=== PATIENT | female | born 1985 | race Caucasian/White ===

== ENCOUNTER 2023-03-27 18:09 | Inpatient (IN) ==
--- OUTSIDE RECORDS SUMMARY | 2023-03-27 18:15 | External Medical Summary | Summary of Care ---
Author Name Unknown Organization [facility] Address [address] [facility] [place] [address] Phone [phone] Care Team Providers Care Net Manager Name Role Phone Katherine Gonzales DO Primary Care Provider Encounter Details Date Type Department Care Team (Late st Contact Info) Description 03/08/2023 Telephone Pharmacy, [facility] [address] [place] [address] [facility] [address] [facility] [place] [address] Allergies No known active allergiesdocumented as of this encounter (statuses as of 03/10/2023) Medications Medication Sig Dispensed Refills Start Date End Date Status CELEXA 40 MG PO TABS None Entered 0 Ac tive Multiple Vitamin (MULTI-VITAMIN DAILY) Tablet Take 1 Tablet by mouth in the morning. 0 Active traZODone (DESYREL) 50 MG Tablet Take 1 Tablet by mouth. Pt takes 3 tablets at bedtime for total dose of 150 mg 0 01/16/2019 Active ARIPiprazole 2 MG Oral Tablet (Abilify) Take 1 Tablet by mouth in the morning. 0 10/15/2020 Active Metoclopramide HCl 10 MG Oral Tablet (Reglan) Take 1 Tablet by mouth as needed for Migraine or Nausea (limit 2-3 per week). 10 Tablet 2 05/25/2022 Active Naproxen 500 MG Oral Tablet (Naprosyn) TAKE 1 TABLET BY MOUTH NEEDED FOR MIGRAINE AT START, MAY REPEAT 1X AFTER 12 HOURS, USE UP TO 3X A WEEK 20 Tablet 2 11/16/2022 Active Aimovig 140 MG/ML Subcutaneous Solution Auto-injector (Erenumab-aooe) Inject 140 mg under the skin every month. 1 mL 5 11/18/2022 Active Aimovig 140 MG/ML Subcutaneous Solution Auto-injector (Erenumab-aooe) Inject 140 mg under the skin Every Month. 1 mL 5 02/14/2023 Active Ubrogepant 100 MG Oral Tablet (Ubrelvy) Take 1 tablets at onset of migraine and may repeat in 2 hours if needed. Do not exceed 2 tablets in 24 hours. 10 Tablet 5 03/01/2023 Active documented as of this encounter (statuses as of 03/10/2023) Active Problems Problem Noted Date Diagnosed Date Body mass index (BMI) of 40.0 to 44.9 in adult 0 03/08/2022 Overview: Per Obesity protocol Encounter for sterilization 11/20/2021 Migraine without aura, intractable 06/10/2021 Recurrent major depressive disorder 02/11/2021 Dyshidrotic eczema 08/19/2016 Migraine without aura and wi thout status migrainosus, not intractable 04/17/2015 Tension headache 04/17/2015 Depression 07/02/2011 Allergic rhinitis 07/02/2011 documented as of this encounter (statuses as of 03/10/2023) Resolved Problems Problem Noted Date Diagnosed Date Resolved Date Depression 07/02/2011 07/02/2011 documented as of this encounter (statuses as of 03/10/2023) Immunizations Name Administration Dates Next Due COVID-19 mRNA, LNP-s, No Pre serve, 2-Dose Series ([employer]) 11/28/2020,04/30/2020,04/09/2020 Covid-19, Mrna, Lnp-s, Pf, B ivalent, 30 Mcg, IM, 12 yrs and above ([employer]) 11/06/2021 Seasonal Influenza Virus Vac cine, Unspecified Formulation 11/06/2021,11/28/2020,11/21/2019,2017,11/27/2016,01/17/2015,12/21/2014,1 04/01/2013,12/05/2012 Seasonal Influenza, Quadriva lent, No Preserve, IM 10/27/2018 Seasonal Influenza, Quadriva lent, No Preserve, Mdck 11/21/2019,12/24/2017 Seasonal Influenza, Recombin ant, RIV3, No Preserve 12/06/2015 Seasonal Influenza, Split, I IV3, With Preserve, Inj 11/27/2016,01/17/2015,01/29/2014,2012 TDAP (age 10 and older)(Boostrix) 07/03/2021 TDAP (age 11 and older)(Adacel) 07/02/2011 documented as of this encounter Social History Tobacco Use Types Packs/Day Years Used Date Smoking Tobacco: Never Smokeless Tobacco: Never Alcohol Use Standard Drinks/Week Comments Yes 0 (1 standard drink = 0.6 oz pur e alcohol) rare- once a month PHQ-2 Answer Date Recorded PHQ Adult Total Score 0 02/25/2022 Hunger Vital Sign Answer Date Recorded Within the past 12 months, y ou worried that your food would run out before you got the money to buy more. Never true 09/05/19 23 Within the past 12 months, t he food you bought just didn't last and you didn't have money to get more. Never true 09/04/2022 Sex and Gender Information Value Date Recorded Sex Assigned at Female 06/07/2018 8:28 AM EDT Gender Identity Female 06/07/2018 8:28 AM EDT Sexual Orientation Straight 06/07/2018 8: 28 AM EDT Job Start Date Occupation Industry Not on file Not on file Not on file documented as of this encounter Miscellaneous Notes * Telephone Encounter - Russell Hart LPN - 03/10/2023 4:18 PM EST Ketty PIRES sent to PreCert team. documented in this encounter Plan of Treatment Upcoming Encounters Date Type Department Care Team (Late st Contact Info) Description 04/08/2023 7:15 AM EST Office Visit Gynecology/Obstetrics [address] [place] [address] Tati Clemons PA-C [address] [place] [address] 05/31/2023 8:40 AM EDT Telemedicine Neurology, [place] [address] [place] [address] Sally Portillo, [address] [place] [address] Health Maintenance Due Date Last Done Comments Hepatitis B (1 of 3 - 3-dose series) 1984 HPV/Co-Test 2014 COVID-19 Vaccine ( season) 2022 11/06/2021, 11/28/2020, 04/30/2020, Additional history exists Depression Screening 02/25/2023 02/25/2022 Cervical Cancer Screening 03/06/2024 Pap Smear 03/06/2024 03/06/2021, 05/30, 04/25/2015, Additional history exists Diabetes Screening 04/28/2025 04/28/2022, 1 , 12/26/2018, Additional history exists DTaP,Tdap,and Td Vaccines (3 - Td or Tdap) 07/04/2031 07/03/2021, 07/02/2011 Influenza Vaccine (FLU shot) Completed , 11/06/2021, 11/28/2020, Additional history exists GARDASIL-HPV IMMUNIZATION SERIES Aged Out No longer eligible based on patient's age to complete this topic MENINGOCOCCAL (MENACTRA/MENVEO) Aged Out No longer eligible based on patient's age to complete this topic Pneumococcal Vaccine: Pediatrics (0 to 5 Years) and At-Risk Patients (6 to 64 Years) Aged Out No longer eligible based on patient's age to complete this topic documented as of this encounter Medical Devices Not on filedocumented as of this encounter Advance Directives Latest Code Status on File Code Status Date Activated Date Inactivated Comments Full Code 11/20/2021 8:15 AM 11/20/2021 3:20 PM This order reflects the patients wishes and were consensually agreed upon. Question Answer Comments Discussion of Advance Directives occurred with: Not Discussed due to patient's condition Code Status History Code Status Date Activated Date Inactivated Comments Full Code 11/20/2021 8:15 AM 11/20/2021 8:15 AM This order reflects the patients wishes and were consensually agreed upon. Question Answer Comments Discussion of Advance Directives occurred with: Not Discussed due to patient's condition Care Teams Net Manager Relationship Specialty Start Date End Date Katherine Gonzales DO [address] [place] [address] PCP - General Family Medicine 09/14/18 documented as of this encounter
--- OUTSIDE RECORDS SUMMARY | 2023-03-27 18:15 | External Medical Summary | Summary of Care ---
Author Name Unknown Organization [facility] Address [address] [place] [address] Phone [phone] Care Team Providers Care Orthopedic Radiologic Technologist Name Role Phone Christian Katherinejerrica Weiner DO Primary Care Provider [phone] Reason for Visit * Reason Comments eRx-Medication Refill Encounter Details Date Type Department Care Team Description [facility] [address] [place], [place] [id number] Malachi Portillo [address] [place] [address] Encounter for long-term (current) use of medications* Allergies No known active allergiesdocumented as of this encounter (statuses as of 11/16/2022) Medications Medication Sig Dispensed Refills Start Date End Date Status CELEXA 40 MG PO TABS None Entered 0 Active Multiple Vitamin (MULTI-VITAMIN DAILY) Tablet Take 1 Tablet by mouth in the morning. 0 Active traZODone (DESYREL) 50 MG Tablet Take 1 Tablet by mouth. Pt takes 3 tablets at bedtime for total dose of 150 mg 0 01/16/2019 Active ARIPiprazole 2 MG Oral Tablet (Abilify) Take 1 Tablet by mouth in the morning. 0 10/15/2020 Active Aimovig 140 MG/ML Subcutaneous Solution Auto-injector (Erenumab-aooe) Inject 140 mg under the skin Every Month. 1 mL 5 05/25/2022 Active Metoclopramide HCl 10 MG Oral Tablet (Reglan) Take 1 Tablet by mouth as needed for Migraine or Nausea (limit 2-3 per week). 10 Tablet 2 05/25/2022 Active Naproxen 500 MG Oral Tablet (Naprosyn) TAKE 1 TABLET BY MOUTH NEEDED FOR MIGRAINE AT START, MAY REPEAT 1X AFTER 12 HOURS, USE UP TO 3X A WEEK 20 Tablet 2 11/16/2022 Active Eletriptan Hydrobromide 40 MG Oral Tablet (Relpax) TAKE 1 TABLET BY MOUTH AT START OF HEADACHE, MAY REPEAT ONCE AFTER 4 HOURS NEEDED MAX 2 DAY/WEEK 10 Tablet 2 11/16/2022 Active Naproxen 500 MG Oral Tablet (Naprosyn) Take 1 Tablet (500 mg) by mouth as needed for Migraine (take 1 tab by mouth at start of headache, may repeat once after 12 hours; use up to 3 days a week). 20 Tablet 2 02/04/2022 3 Discontinued Eletriptan Hydrobromide 40 MG Oral Tablet (Relpax) Take 1 Tablet by mouth as needed for Migraine. take 1 tab by mouth at start of headache, may repeat once after 4 hours; may use up to 2 days per week 10 Tablet 2 05/25/2022 3 Discontinued documented as of this encounter (statuses as of 11/16/2022) Active Problems Problem Noted Date Body mass index (BMI) of 40.0 to 44.9 in adult 03/08/2022 Overview: Per Obesity protocol Encounter for sterilization 11/20/2021 Migraine without aura, intractable 06/10 Recurrent major depressive disorder 01/28 Dyshidrotic eczema 08/19/2016 Migraine without aura and without status migrainosus, not intractable 04/17/2015 Tension headache 04/17/2015 Depression 07/02/2011 Allergic rhinitis 07/02/2011 documented as of this encounter (statuses as of 11/16/2022) Resolved Problems Problem Noted Date Resolved Date Depression 07/02/2011 07/02/2011 documented as of this encounter (statuses as of 11/16/2022) Immunizations Name Administration Dates Next Due COVID-19 mRNA, LNP-s, No Pre serve, 2-Dose Series ([employer]) 11/28/2020,04/30/2020,04/09/2020 Covid-19, Mrna, Lnp-s, Pf, B ivalent, 30 Mcg, IM, 12 yrs and above (Pfizer) 11/06/2021 Seasonal Influenza Virus Vac cine, Unspecified [...] pur e alcohol) rare- once a month Food Insecurity Answer Date Recorded Within the past 12 months, y ou worried that your food would run out before you got money to buy more. Never true 09/04/2022 Within the past 12 months, t he food you bought just didn't last and you didn't have money to get more. Never true 09/04/2022 Sex Assigned at Date Recorded Female 06/07/2018 8:28 AM E DT Job Start Date Occupation Industry Not on file Not on file Not on file documented as of this encounter Miscellaneous Notes * Telephone Encounter - Tasia Lugo, [facility] - 11/16/2022 11:27 AM EDT Signed Prescriptions: Disp Refills Naproxen 500 MG Oral Tablet (Naprosyn) 20 Tab*2 Sig: TAKE 1 TABLET BY MOUTH NEEDED FOR MIGRAINE AT START, MAY REPEAT 1X AFTER 12 HOURS, USE UP TO 3X A WEEKAuthorizing Provider: MALACHI PORTILLO User: TASIA LUGO Eletriptan Hydrobromide 40 MG Oral Tablet *10 Tab*2 Sig: TAKE 1 TABLET BY MOUTH AT START OF HEADACHE, MAY REPEAT ONCE AFTER 4 HOURS NEEDED MAX 2 DAY/WEEKAuthorizing Provider: MALACHI PORTILLO User: TASIA LUGO * Telephone Encounter - Tasia Lugo RPh - 11/16/2022 11:24 AM EDT Per refill protocol patient needs AST/ALT on file within the past year while using NSAIDs. Lab workordered. Patient may obtain with next routine labs. Thanks, Tasia Lugo PharmD, MS Clinical Pharmacist [facility] [phone] 11/16/2022 11:24 AM * Telephone Encounter - RICH Banda - 11/16/2022 10:25 AM EDT Pending Prescriptions: Disp Refills Naproxen 500 MG Oral Tablet [Pharmacy Med *20 Tab*2 Sig: TAKE 1 TABLET BY MOUTH NEEDED FOR MIGRAINE AT START, MAY REPEAT 1X AFTER 12 HOURS, USE UP TO 3X A WEEK Eletriptan Hydrobromide 40 MG Oral Tablet *10 Tab*2 Sig: TAKE 1 TABLET BY MOUTH AT START OF HEADACHE, MAY REPEAT ONCE AFTER 4 HOURS NEEDED MAX 2 DAY/WEEK * Telephone Encounter - RICH Banda - 11/16/2022 10:24 AM EDT Patient is up to date for office visits. Pending Prescriptions: Disp Refills Naproxen 500 MG Oral Tablet (Naprosyn) [P*20 Tab*2 Sig: TAKE 1 TABLET BY MOUTH NEEDED FOR MIGRAINE AT START, MAY REPEAT 1X AFTER 12 HOURS, USE UP TO 3X A WEEK Eletriptan Hydrobromide 40 MG Oral Tablet*10 Tab*2 Sig: TAKE 1 TABLET BY MOUTH AT START OF HEADACHE, MAY REPEAT ONCE AFTER 4 HOURS NEEDED MAX 2 DAY/WEEK Last Visit: Visit date not found (in office), 05/25/2022 (telemedicine) Next Visit: Visit date not found If no future appointments scheduled, and last appointment is greater than a year ago, please schedule patient for a follow-up appointment Last date the medication was ordered: 05/25 12/ Pharmacy: [id number] Is this request for a controlled substance?No it is not controlled. Urine Drug Screen:No results found for this or any previous visit. Patient Phone Numbers Labs: Lab Results Component Value Date/Time CREAT 0.9 02/25/2022 07:28 AM CREAT 0.8 04/12/2015 10:25 AM POTASSIUM 4.8 02/25/2022 07:28 AM POTASSIUM 4.4 04/12/2015 10:25 AM TSH 1.43 04/12/2015 10:25 AM LDLCALC 108 02/25/2022 07:28 AM LDLCALC 94 12/26/2018 09:33 AM LDLDIRECT NOT APPLICABLE 12/26/2018 09:33 AM ALT 14 09/08/2015 02:55 PM HGBA1C 5.2 04/28/2022 10:40 AM documented in this encounter Plan of Treatment Upcoming Encounters Date Type Specialty Care Team Description 03/01/2023 Telemedicine Neurology Malachi Portillo, DO [address] [facility] [place] [address] 04/08/2023 Office Visit Gynecology Obstetrics Tati Clemons PA-C [address] [place] [address] Scheduled Orders Name Type Priority Associated Diagnoses Orde r Schedule ALT Lab Routine Encounter for long-term (current) use of medications Expected: 11/16/2022 (Approximate), Expires: 11/17/2023 AST Lab Routine Encounter for long-term (current) use of medications Expected: 11/16/2022 (Approximate), Expires: 11/17/2023 Health Maintenance Due Date Last Done Comments Hepatitis B (1 of 3 - 3-dose series) 1984 HPV/Co-Test 2014 Influenza Vaccine (FLU shot) (#1) 2022 11/06/2021, 11/28/2020, 11/21/2019, Additional history exists Depression Screening 02/25/2023 02/25/2022 Cervical Cancer Screening 03/06/2024 Pap Smear 03/06/2024 03/06/2021, 05/30, 04/25/2015, Additional history exists Diabetes Screening 04/28/2025 04/28/2022, 1 , 12/26/2018, Additional history exists DTaP,Tdap,and Td Vaccines (3 - Td or Tdap) 07/04/2031 07/03/2021, 07/02/2011 Hepatitis C Screening Completed 04/22/2014 COVID-19 Vaccine Completed 11/06/2021, 02/2020, 04/30/2020, Additional history exists GARDASIL-HPV IMMUNIZATION SERIES Aged [...] Not on filedocumented as of this encounter Visit Diagnoses Diagnosis Encounter for long-term (current) use of medications- Primary Encounter for long-term (current) use of other medications documented in this encounter Advance Directives Latest Code Status [...] Discussed due to patient's condition Care Teams Orthopedic Radiologic Technologist Relationship Specialty Start Date End Date Katherine Gonzales, DO [address] [place] [address] PCP - General Family Medicine 09/14/18 documented as of this encounter
--- OUTSIDE RECORDS SUMMARY | 2023-03-27 18:15 | External Medical Summary | Summary of Care ---
Author Name Unknown Organization [facility] Address [address] [place] [address] Phone [phone] Care Team Providers Care Epic [employer] Specialists Name Role Phone Christian Katherinejerrica Weiner DO Primary Care Provider [phone] Reason for Visit * Reason Onset Date Comments Medication Refill 02/14/2023 Encounter Details Date Type Department Care Team (Late st Contact Info) Description 02/14/2023 Telephone Neurology, [place] [address] [place], [place] [phone] Sally Portillo [address] [place] [address] Medication Refill Allergies No known active allergiesdocumented as of this encounter (statuses as of 02/14/2023) Medications Medication Sig Dispensed Refills Start Date [...] 2 DAY/WEEK 10 Tablet 2 11/16/2022 Active Aimovig 140 MG/ML Subcutaneous Solution Auto-injector (Erenumab-aooe) Inject 140 mg under the skin every month. 1 mL 5 11/18/2022 Active Aimovig 140 MG/ML Subcutaneous Solution Auto-injector (Erenumab-aooe) Inject 140 mg under the skin Every Month. 1 mL 5 02/14/2023 Active documented as of this encounter (statuses as of 02/14/2023) Active Problems Problem Noted Date Diagnosed Date [...] as of this encounter (statuses as of 02/14/2023) Resolved Problems Problem Noted Date Diagnosed Date Resolved Date Depression 07/02/2011 07/02/2011 documented as of this encounter (statuses as of 02/14/2023) Immunizations Name Administration Dates Next Due COVID-19 mRNA, LNP-s, No Pre serve, 2-Dose Series ([facility]) 11/28/2020,04/30/2020,04/09/2020 Covid-19, Mrna, Lnp-s, Pf, B ivalent, 30 Mcg, IM, 12 yrs and above ([facility]) 11/06/2021 Seasonal Influenza Virus Vac cine, Unspecified [...] encounter Miscellaneous Notes * Telephone Encounter - Rayna Guerrero RPh - 02/14/2023 10:17 AM EST Reissued Aimovig Rx from correct dept documented in this encounter Plan of Treatment Upcoming Encounters Date Type Department Care Team (Late st Contact Info) Description 03/01/2023 8:40 AM EST Telemedicine Neurology, [place] [address] [place] [address] Sally Portillo DO [address] [place] [address] 04/08/2023 7:15 AM EST Office Visit Gynecology/Obstetrics Gordon Leung [address] [place] [address] Tati Clemons PA-C [address] [place] [address] Health Maintenance Due Date Last Done Comments [...] Discussed due to patient's condition Care Teams Epic [employer] Relationship Specialty Start Date End Date Katherine Gonzales DO [address] [place] [address] PCP - General Family Medicine 09/14/18 documented as of this encounter
--- OUTSIDE RECORDS SUMMARY | 2023-03-27 18:15 | External Medical Summary | Summary of Care ---
Author Name Unknown Organization [facility] Address [address] [place] [address] Phone [phone] Care Team Providers Care Textile Technical Officer Name Role Phone Christian Katherine Husam GUZMAN Primary Care Provider [phone] Reason for Visit * Reason Onset Date Comments Precert Approved 03/10/2023 Ubrogepant Encounter Details Date Type Department Care Team (Late st Contact Info) Description 03/10/2023 Telephone Neurology, [place] [address] [place], [place] [id number] [facility] [address] [place], [place] [phone] Precert Approved ( Ubrogepant) Allergies No known active allergiesdocumented as of this encounter (statuses as of 03/14/2023) Medications Medication Sig Dispensed Refills Start Date [...] as of this encounter (statuses as of 03/14/2023) Active Problems Problem Noted Date Diagnosed Date [...] as of this encounter (statuses as of 03/14/2023) Resolved Problems Problem Noted Date Diagnosed Date Resolved Date Depression 07/02/2011 07/02/2011 documented as of this encounter (statuses as of 03/14/2023) Immunizations Name Administration Dates Next Due COVID-19 mRNA, LNP-s, No Pre serve, 2-Dose Series ([employer]) 11/28/2020,04/30/2020,04/09/2020 Covid-19, Mrna, Lnp-s, Pf, B ivalent, 30 Mcg, IM, 12 yrs and above ([employer]) 11/06/2021 Seasonal Influenza Virus Vac cine, Unspecified [...] encounter Miscellaneous Notes * Telephone Encounter - Hailey AURELIANO Wells - 03/10/2023 4:17 PM EST Neurology Pre-Cert Request Medication/Disease State Information: Medication: Ubrogepant Diagnosis (including ICD-10): Migraine - Migraine without aura G43.0 - Self- administered - route pre-cert request to [id number] See corresponding visit note(s) for additional supporting clinical information. Office Information: Prescriber: Dr. Portillo documented in this encounter Plan of Treatment Upcoming Encounters Date Type Department Care Team (Late st Contact Info) Description 04/08/2023 7:15 AM EST [facility] [address] [place] [address] Tati Clemons PA-C [address] [place] [address] 05/31/2023 8:40 AM EDT Telemedicine Neurology, [place] [address] [place], [place] [phone] Sally Portlilo, [address] [facility] [place] [address] Health Maintenance Due Date Last Done Comments [...] Discussed due to patient's condition Care Teams Textile Technical Officer Relationship Specialty Start Date End Date Katherine Gonzales DO [address] [place] [address] PCP - General Family Medicine 09/14/18 documented as of this encounter
--- OUTSIDE RECORDS SUMMARY | 2023-03-27 18:15 | External Medical Summary | Summary of Care ---
Author Name Unknown Organization [facility] Address [address] [place] [address] Phone [phone] Care Team Providers Care Cover Stripper Name Role Phone Christian Katherinejerrica Weiner DO Primary Care Provider [phone] Reason for Visit * Reason Onset Date Comments Pre Cert/Prior Auth 03/10/2023 Ubrogepant Encounter Details Date Type Department Care Team (Late st Contact Info) Description 03/10/2023 Telephone Neurology, [place] [address] [place], [place] [phone] Sally Portillo [address] [place] [address] Pre Cert/Prior Auth (Ubrogepant) Allergies No known active allergiesdocumented as of [...] mRNA, LNP-s, No Pre serve, 2-Dose Series ([employer]) 11/28/2020,04/30/2020,04/09/2020 Covid-19, Mrna, Lnp-s, Pf, B ivalent, 30 Mcg, IM, 12 yrs and above ([employer]) 11/06/2021 Seasonal Influenza Virus Vac cine, Unspecified [...] Encounter - Russell Hart LPN - 03/10/2023 4:17 PM EST Neurology Pre-Cert Request Medication/Disease State Information: Medication: Ubrogepant Diagnosis (including ICD-10): Migraine - Migraine without aura G43.0 - Self- administered - route pre-cert request to [id number] See corresponding visit note(s) for additional supporting clinical information. Office Information: Prescriber: Dr. Portillo documented in this encounter Plan of Treatment Upcoming Encounters Date Type Department Care Team (Late st Contact Info) Description 04/08/2023 7:15 AM EST Office Visit Gynecology/Obstetrics Gordon Leung [address] [place] [address] Tati Clemons PA-C [address] [place] [address] 05/31/2023 8:40 AM EDT Telemedicine Neurology, [place] [address] [place], [place] [phone] Sally Portillo, [address] [place] [address] Health Maintenance Due Date Last Done Comments [...] Discussed due to patient's condition Care Teams Cover Stripper Relationship Specialty Start Date End Date Katherine Gonzales DO [address] [place] [address] PCP - General Family Medicine 09/14/18 documented as of this encounter
--- OUTSIDE RECORDS SUMMARY | 2023-03-27 18:15 | External Medical Summary | Summary of Care ---
Author Name Unknown Organization [facility] Address [address] [place] [address] Phone [phone] Care Team Providers Care Regional Clinical Director Name Role Phone Christian Katherinejerrica Weiner DO Primary Care Provider [phone] Reason for Visit * Reason Comments Medication Refill Encounter Details Date Type Department Care Team Description 11/18/2022 Refill Neurology, [facility] [address] [place] [address] Malachi Portillo [address], [place] [phone] Allergies No known active allergiesdocumented as of this encounter (statuses as of 11/18/2022) Medications Medication Sig Dispensed Refills Start Date [...] the skin Every Month. 1 mL 5 11/18/2022 Active Aimovig 140 MG/ML Subcutaneous Solution Auto-injector (Erenumab-aooe) Inject 140 mg under the skin Every Month. 1 mL 5 05/25/2022 11/18/2022 Discontinued (Refill) documented as of this encounter (statuses as of 11/18/2022) Active Problems Problem Noted Date Body mass index (BMI) of 40.0 to 44.9 in adult 03/08/2022 Overview: Per Obesity protocol Encounter for sterilization 11/20/2021 Migraine without aura, intractable 06/10 Recurrent major depressive disorder 01/28 Dyshidrotic eczema 08/19/2016 Migraine without aura and without status migrainosus, not intractable 04/17/2015 Tension headache 04/17/2015 Depression 07/02/2011 Allergic rhinitis 07/02/2011 documented as of this encounter (statuses as of 11/18/2022) Resolved Problems Problem Noted Date Resolved Date Depression 07/02/2011 07/02/2011 documented as of this encounter (statuses as of 11/18/2022) Immunizations Name Administration Dates Next Due COVID-19 mRNA, LNP-s, No Pre serve, 2-Dose Series ([employer]) 11/28/2020,04/30/2020,04/09/2020 Covid-19, Mrna, Lnp-s, Pf, B ivalent, 30 Mcg, IM, 12 yrs and above ([employer]) 11/06/2021 Seasonal Influenza Virus Vac cine, Unspecified [...] encounter Miscellaneous Notes * Telephone Encounter - Malachi Portillo DO - 11/18/2022 8:53 AM EDT Signed Prescriptions: Disp Refills Aimovig 140 MG/ML Subcutaneous Solution Au*1 mL 5 Sig: Inject 140 mg under the skin Every Month.Authorizing Provider: MALACHI PORTILLO documented in this encounter Plan of Treatment Upcoming Encounters Date Type Specialty Care Team Description 03/01/2023 Telemedicine Neurology Malachi Portilol, DO [address] [facility] [place] [address] 04/08/2023 Office Visit Gynecology Obstetrics Tati Clemons PA-C [address] [place] [address] Health Maintenance Due Date Last Done Comments [...] Discussed due to patient's condition Care Teams Regional Clinical Director Relationship Specialty Start Date End Date Katherine Gonzales, DO [address] [place] [address] PCP - General Family Medicine 09/14/18 documented as of this encounter
--- OUTSIDE RECORDS SUMMARY | 2023-03-27 18:15 | External Medical Summary | Summary of Care ---
Author Name Unknown Organization [facility] Address [address] [place] [address] Phone [phone] Care Team Providers Care Auto Emissions Technician Name Role Phone Christian Katherinejerrica Weiner DO Primary Care Provider [phone] Reason for Visit * Reason Onset Date Comments Precert In Process 03/10/2023 12 [facility] Ubr ogepant Encounter Details Date Type Department Care Team (Late st Contact Info) Description [facility] [address] [place], [place] [phone] Sally Portillo [address], [place] [phone] Precert In Process (12 [facility] Ubrogepant) Allergies No known active allergiesdocumented as of this encounter (statuses as of 03/11/2023) Medications Medication Sig Dispensed Refills Start Date [...] as of this encounter (statuses as of 03/11/2023) Active Problems Problem Noted Date Diagnosed Date [...] as of this encounter (statuses as of 03/11/2023) Resolved Problems Problem Noted Date Diagnosed Date Resolved Date Depression 07/02/2011 07/02/2011 documented as of this encounter (statuses as of 03/11/2023) Immunizations Name Administration Dates Next Due COVID-19 mRNA, LNP-s, No Pre serve, 2-Dose Series ([employer]) 11/28/2020,04/30/2020,04/09/2020 Covid-19, Mrna, Lnp-s, Pf, B ivalent, 30 Mcg, IM, 12 yrs and above ([employer]) 11/06/2021 Seasonal Influenza Virus Vac cine, Unspecified [...] Self- administered - route pre-cert request to [id number] See corresponding visit note(s) for additional supporting clinical information. Office Information: Prescriber: Dr. Portillo documented in this encounter Plan of Treatment Upcoming Encounters Date Type Department Care Team (Late st Contact Info) Description 04/08/2023 7:15 AM EST Office Visit Gynecology/Obstetrics Gordon Leung [address] [place] [address] Tati Clemons PA-C [address] [place] [address] 05/31/2023 8:40 AM EDT [facility] [address], [place] [phone] Sally Portillo DO [address] [place] [address] Health Maintenance Due Date Last Done Comments [...] Discussed due to patient's condition Care Teams Auto Emissions Technician Relationship Specialty Start Date End Date Katherine Gonzales DO [address] [place] [address] PCP - General Family Medicine 09/14/18 documented as of this encounter
--- OUTSIDE RECORDS SUMMARY | 2023-03-27 18:15 | External Medical Summary | Summary of Care ---
Author Name Unknown Organization [facility] Address [address] [place] [address] Phone [phone] Care Team Providers Care Lawn Sprinkler Servicer Name Role Phone Christian Katherinejerrica Weiner DO Primary Care Provider [phone] Reason for Visit * Reason Onset Date Comments Pre Cert/Prior Auth 03/10/2023 Ubrogepant Encounter Details Date Type Department Care Team (Late st Contact Info) Description 03/10/2023 Telephone Neurology, [facility] [address], [place] [phone] Sally Portillo [address] [place], [place] [phone] Pre Cert/Prior Auth (Ubrogepant) Allergies No known [...] mRNA, LNP-s, No Pre serve, 2-Dose Series ([employer]) 11/28/2020,04/30/2020,04/09/2020 Covid-19, Mrna, Lnp-s, Pf, B ivalent, 30 Mcg, IM, 12 yrs and above ([employer]) 11/06/2021 Seasonal Influenza Virus Vac cine, Unspecified [...] Self- administered - route pre-cert request to [id number] See corresponding visit note(s) for additional supporting clinical information. Office Information: Prescriber: Dr. Portillo documented in this encounter Plan of Treatment Upcoming Encounters Date Type Department Care Team (Late st Contact Info) Description 04/08/2023 7:15 AM EST Office Visit Gynecology/Obstetrics Gordon Leung [address] [place] [address] Tati Clemons PA-C [address] [place] [address] 05/31/2023 8:40 AM EDT Telemedicine Neurology, [facility] [address], [place] [phone] Sally Portillo, [address] [place] [address] Health Maintenance Due Date Last Done Comments [...] Discussed due to patient's condition Care Teams Lawn Sprinkler Servicer Relationship Specialty Start Date End Date Katherine Gonzales DO [address] [place] [address] PCP - General Family Medicine 09/14/18 documented as of this encounter
--- OUTSIDE RECORDS SUMMARY | 2023-03-27 18:15 | External Medical Summary | Summary of Care ---
Author Name Unknown Organization [facility] Address [address] [facility] [place] [address] Phone [phone] Care Team Providers Care Velocity Shooter Name Role Phone Katherine Gonzales DO Primary Care Provider Encounter Details Date Type Department Care Team (Late st Contact Info) Description 02/09/2023 Specialty Pharmacy [facility], [address] [address] Medication, Mtm Specialty Refill, [address] [address] Allergies No known active allergiesdocumented as of this encounter (statuses as of 02/09/2023) Medications Medication Sig Dispensed Refills Start Date [...] every month. 1 mL 5 11/18/2022 Active documented as of this encounter (statuses as of 02/09/2023) Active Problems Problem Noted Date Diagnosed Date [...] as of this encounter (statuses as of 02/09/2023) Resolved Problems Problem Noted Date Diagnosed Date Resolved Date Depression 07/02/2011 07/02/2011 documented as of this encounter (statuses as of 02/09/2023) Immunizations Name Administration Dates Next Due COVID-19 mRNA, LNP-s, No Pre serve, 2-Dose Series ([employer]) 11/28/2020,04/30/2020,04/09/2020 Covid-19, Mrna, Lnp-s, Pf, B ivalent, 30 Mcg, IM, 12 yrs and above ([employer]) 11/06/2021 Seasonal Influenza Virus Vac cine, Unspecified [...] on file documented as of this encounter Progress Notes * Ade Rincon PHARM Tech - 02/09/2023 11:07 AM EST Prescribed medication: Medication: aimovig Shipment date: 02/14 Delivery method: Specialty Mail Location Medication Delivered too? Prescription Address: . [address] [facility] [address] RICH Sin [facility] 02/09/2023,11:07 AM documented in this encounter Plan of Treatment Upcoming Encounters Date Type Department Care Team (Late st Contact Info) Description 03/01/2023 8:40 AM EST Telemedicine Neurology[address] [address] BandarMeellyziggy Howard, DO [address] [place] [address] 04/08/2023 7:15 AM EST Office Visit Gynecology/Obstetrics [facility] Leung [address] [place] [address] Tati Clemons PA-C [address] [place] [address] Health Maintenance Due Date Last Done Comments Hepatitis B (1 of 3 - 3-dose series) 1984 HPV/Co-Test 2014 COVID-19 Vaccine (2022- season) 2022 11/06/2021, 11/28/2020, 04/30/2020, Additional history [...] Discussed due to patient's condition Care Teams Velocity Shooter Relationship Specialty Start Date End Date Katherine Gonzales DO [address] [place] [address] PCP - General Family Medicine 09/14/18 documented as of this encounter
--- OUTSIDE RECORDS SUMMARY | 2023-03-27 18:15 | External Medical Summary | Summary of Care ---
Author Name Unknown Organization [facility] Address [address] [facility] [place] [address] Phone [phone] Care Team Providers Care Senior Buyer Name Role Phone Katherine Gonzales DO Primary Care Provider Encounter Details Date Type Department Care Team Description 10/22/2022 Specialty Pharmacy [facility], [address] [address] Medication, Mtm Specialty Refill, [address] [address] Allergies No known active allergiesdocumented as of this encounter (statuses as of 10/22/2022) Medications Medication Sig Dispensed Refills Start Date [...] mouth in the morning. 0 10/15/2020 Active Naproxen 500 MG Oral Tablet (Naprosyn) Take 1 Tablet (500 mg) by mouth as needed for Migraine (take 1 tab by mouth at start of headache, may repeat once after 12 hours; use up to 3 days a week). 20 Tablet 2 02/04/2022 Active Aimovig 140 MG/ML Subcutaneous Solution Auto-injector (Erenumab-aooe) Inject 140 mg under the skin Every Month. 1 mL 5 05/25/2022 Active Eletriptan Hydrobromide 40 MG Oral Tablet (Relpax) Take 1 Tablet by mouth as needed for Migraine. take 1 tab by mouth at start of headache, may repeat once after 4 hours; may use up to 2 days per week 10 Tablet 2 05/25/2022 Active Metoclopramide HCl 10 MG Oral Tablet (Reglan) Take 1 Tablet by mouth as needed for Migraine or Nausea (limit 2-3 per week). 10 Tablet 2 05/25/2022 Active documented as of this encounter (statuses as of 10/22/2022) Active Problems Problem Noted Date Body mass index (BMI) of 40.0 to 44.9 in adult 03/08/2022 Overview: Per Obesity protocol Encounter for sterilization 11/20/2021 Migraine without aura, intractable 06/10 Recurrent major depressive disorder 01/28 Dyshidrotic eczema 08/19/2016 Migraine without aura and without status migrainosus, not intractable 04/17/2015 Tension headache 04/17/2015 Depression 07/02/2011 Allergic rhinitis 07/02/2011 documented as of this encounter (statuses as of 10/22/2022) Resolved Problems Problem Noted Date Resolved Date Depression 07/02/2011 07/02/2011 documented as of this encounter (statuses as of 10/22/2022) Immunizations Name Administration Dates Next Due COVID-19 mRNA, LNP-s, No Pre serve, 2-Dose Series ([employer]) 11/28/2020,04/30/2020,04/09/2020 Covid-19, Mrna, Lnp-s, Pf, B ivalent, 30 Mcg, IM, 12 yrs and above ([employer]) 11/06/2021 Seasonal Influenza Virus Vac cine, Unspecified [...] as of this encounter Progress Notes * RICH Sin - 10/22/2022 9:13 AM EDT Prescribed medication: Medication: Aimovig Shipment date: 10/25 Delivery method: Specialty Mail Location Medication Delivered too? Prescription Address: . [address] [place] [address] [place] [address] RICH Sin [facility] 10/22/2022,9:13 AM documented in this encounter Plan of Treatment Upcoming Encounters Date Type Specialty Care Team Description 03/01/2023 Telemedicine Neurology Sally Portillo, DO [address] [place] [address] Health Maintenance Due Date Last Done Comments Hepatitis B (1 of 3 - 3-dose series) 1985 HPV/Co-Test 2014 Influenza Vaccine (FLU shot) (#1) 2022 11/06/2021, 11/28/2020, 11/21/2019, Additional history exists Depression Screening, Annual for Pts 12 and Over 02/25/2023 02/25/2022 Cervical Cancer Screening 03/06/2024 Pap [...] Discussed due to patient's condition Care Teams Senior Buyer Relationship Specialty Start Date End Date Katherine Gonzales, DO [address] [place] [address] PCP - General Family Medicine 09/14/18 documented as of this encounter
--- OUTSIDE RECORDS SUMMARY | 2023-03-27 18:15 | External Medical Summary | Summary of Care ---
Author Name Unknown Organization [facility] Address [address] [place] [address] Phone [phone] Care Team Providers Care Food Safety Scientist Name Role Phone Tishadavid Katherine Husam GUZMAN Primary Care Provider Reason for Visit * Reason Comments Follow Up Migraine Headache Encounter Details Date Type Department Care Team (Late st Contact Info) Description 03/01/2023 8:40 AM EST Telemedicine Neurology, [place] [address] [place] [address] [facility] [address], [place] [id number] Migraine without aura and without status migrainosus, not intractable* Allergies No known active allergiesdocumented as of this encounter (statuses as of 03/01/2023) Medications Medication Sig Dispensed Refills Start Date [...] 24 hours. 10 Tablet 5 03/01/2023 Active Eletriptan Hydrobromide 40 MG Oral Tablet (Relpax) TAKE 1 TABLET BY MOUTH AT START OF HEADACHE, MAY REPEAT ONCE AFTER 4 HOURS NEEDED MAX 2 DAY/WEEK 10 Tablet 2 11/16/2022 Discontinued documented as of this encounter (statuses as of 03/01/2023) Active Problems Problem Noted Date Diagnosed Date [...] as of this encounter (statuses as of 03/01/2023) Resolved Problems Problem Noted Date Diagnosed Date Resolved Date Depression 07/02/2011 07/02/2011 documented as of this encounter (statuses as of 03/01/2023) Immunizations Name Administration Dates Next Due COVID-19 mRNA, LNP-s, No Pre serve, 2-Dose Series (Just Above Cost) 11/28/2020,04/30/2020,04/09/2020 Covid-19, Mrna, Lnp-s, Pf, B ivalent, [...] as of this encounter Progress Notes * Sally Portillo, - 03/01/2023 8:21 AM EST Images from the original note were not included. Patient location: HOME. I was not in a hospital or clinic location. After connecting through [employer], patient was verified with two unique identifiers. Patient (or authorized legal car sales representative) was then informed that this was a Telemedicine visit and being conducted confidentially over secure lines. Methods to assure confidentiality were taken. Patient acknowledged consent and understanding of privacy and security of the Telemedicine visit. The patient agreed to participate. Name: Adria Chance : 1985 Chief Complaint: Headache f/u History of Present Illness: I saw Adria on 03/01/2023 for migraine follow-up. She was last seen by me on 09/28/2022 via telemedicine with complaint of headache. She was referred by Neurology - Ashley Lafleur PA-C who she was previously seeing for headaches (last appt 08/25/2021). She has remained improved since last visit. Currently, she has headaches 4-8 days per month with average intensity of 2/10. She has severe migraine headaches 1-2 days per month with average intensity of 5-6/10. This was the roughly same as last visit. However, she reports a period of 3-4 weeks in Dec-Jan 2023 where she was having daily headaches andmore severe (6-7/10). Her abortive were not effective at that time. She took magnesium and B vitamins during this time period and noted improvement after taking. No lifestyle changes she can attribute to the worsening. May be weather changes. For prevention, she was to continue her Aimovig 140mg monthly injections as it was effective and noside effects. For acute therapy, she was given Eletriptan 40mg prn and naproxen 500mg prn with pain relief in 1 hour and resolution in 3-4 hours. Usually needs to sleep after. If she does not sleep, she does not feel the eletriptan is effective. She has not used the compazine. Baseline 02/04/2023: She is a 36 year old year old female who has a history of headaches since youth. The headaches became problematic when she was 12-13 years of age. This is when the pain increased in severity and frequency. Currently, she has headaches daily (30/30 days per month) with average severity of 3-4/10. She getsworse headaches 10 days per month with average severity of 7/10 recently. This has been the trend for at least the last 10-15 years. Attributes worsening to to more stress in her life. The worsening has been progressive. No thunderclap quality/sudden onset to the headache. No events, lifestyle triggers, or illnesses that the patient can attribute the worsening to. The pain is described as a throbbing/pressure sensation, constant and located in the bitemporal, frontal or back of the head (R>L) . There is scalp allodynia. There is no associated neck pain. Head movements do not trigger headaches. The duration of pain is full day without acute agents. The longest is 3 weeks continuous. The pain can start anytime during the day. The patient has photophobia, phonophobia, osmophobia, and movement sensitivity with headaches. GI symptoms include nausea and vomiting with headaches, but rarely. Migraine Auras: Timing, frequency and sequence Visual aura - none Motor aura - none Sensory aura - none Language -none Brainstem aura - none Retinal aura None Cranial autonomic symptoms --- NO lacrimation, conjunctival injection, ptosis, periorbital edema, itching/gritty eye, nasal congestion, rhinorrhea, ear fullness, facial flushing, facial pallor and sialorrhea. She may also have restlessness or agitation associated with the attacks. Atypical symptoms -- NO symptoms of TVO, whooshing sounds, jaw claudication, or visibly enlarged temporal arteries. Prodrome (hours to days before) --- none Postdrome (24-48 hours after) -- difficulty concentrating, fatigue, depressed mood Triggers and lifestyle factors: Stress is a trigger. Menstrual cycle is regular. 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 There is snoring. There is daytime fatigue. Sleep study pending Too much sleep is a trigger. Too little sleep is a trigger. Exercises- not much . Exercise is not a trigger. Food triggers - none Skipping meals is a trigger. Dehydration is a trigger. Weather changes is a trigger. Heat exposure is a trigger. Alcohol - limits consumption - it is a trigger Caffeine - 1 cup of coffee in the morning ; skipping can trigger Coughing, sneezing, and Valsalva maneuvers are not triggers, aggravate preexisting headache. Postural changes are not triggers, but can aggravate pre-exiting headache or a brief head pain thanresolves right afterwards. Head or neck injury - none PMHx: Past Medical History: Diagnosis Date Anxiety Depression Migraines Varicella 1992 There is NO history of HTN, HLD, DMII, stroke, TIA, ND, arrhythmia, kidney stone, or asthma. Psychiatric History: Anxiety and Depression - controlled with meds and therapy Surgical Hx: Past Surgical History: Procedure Laterality Date LAPAROSCOPY;RMV ADNEXAL STRUCT Bilateral 11/20/2021 LAPAROSCOPIC OOPHORECTOMY AND OR SALPINGECTOMY performed by Eva Plasencia DO at OR [facility] ORAL SURGERY PROCEDURE 2006 wisdom teeth Medication List: Current Outpatient Medications: Aimovig 140 MG/ML Subcutaneous Solution Auto-injector (Erenumab-aooe), Inject 140 mg under the skinEvery Month., Disp: 1 mL, Rfl: 5 Aimovig 140 MG/ML Subcutaneous Solution Auto-injector (Erenumab-aooe), Inject 140 mg under the skinevery month., Disp: 1 mL, Rfl: 5 Eletriptan Hydrobromide 40 MG Oral Tablet (Relpax), TAKE 1 TABLET BY MOUTH AT START OF HEADACHE, MAY REPEAT ONCE AFTER 4 HOURS NEEDED MAX 2 DAY/WEEK, Disp: 10 Tablet, Rfl: 2 Naproxen 500 MG Oral Tablet (Naprosyn), TAKE 1 TABLET BY MOUTH NEEDED FOR MIGRAINE AT START, MAYREPEAT 1X AFTER 12 HOURS, USE UP TO 3X A WEEK, Disp: 20 Tablet, Rfl: 2 Metoclopramide HCl 10 MG Oral Tablet (Reglan), Take 1 Tablet by mouth as needed for Migraine or Nausea (limit 2-3 per week)., Disp: 10 Tablet, Rfl: 2 ARIPiprazole 2 MG Oral Tablet (Abilify), Take 1 Tablet by mouth in the morning., Disp: , Rfl: traZODone (DESYREL) 50 MG Tablet, Take 1 Tablet by mouth. Pt takes 3 tablets at bedtime for total dose of 150 mg, Disp: , Rfl: Multiple Vitamin (MULTI-VITAMIN DAILY) Tablet, Take 1 Tablet by mouth in the morning., Disp: , Rfl: CELEXA 40 MG PO TABS, None Entered, Disp: , Rfl: Name, dose, duration, effectiveness and side effects Current acute treatments: Eletriptan 40mg prn and Naproxen 500mg prn - effective initially, but stopped working Current preventative treatments: Aimovig 140mg monthly (01/2022 - present) - effective at reducing headache frequency by 75%; no side effects --- Celexa and Abilify - for psych Past acute treatments: sumatriptan 100mg prn - was effective initially, no longer Rizatriptan 10mg prn - not effective Naratriptan 2.5mg prn - not effective Fioricet prn - only occasionally effective Steroid tapers - not effective Zolmitriptan 5mg prn - effective initially, but stopped working Compazine 10mg prn - effective , but makes her feel 'spacey' Reglan 10mg prn - prescribed, but not tried given her concern for potential side effects Past preventative treatments: topiramate (unknown dose) - tried 2 different times with first time being over 1 year ; side effectof drowsiness, paraesthesias, couldn't taste carbonation nortriptyline (unknown dose for 3-4 months) - not effective ; side effect of weight gain Verapamil 120mg daily (3 months) - not effective; caused dizziness Propranalol (tried for only a few days) -not effective ; made her feel drowsy Timolol (tried for a few days) - not effective ; made her feel drowsy gabapentin 300mg (3 weeks) - not effective Emgality 120mg monthly (5-6 months) - not effective * Nurtec 75mg QOD prescribed, but insurance id not approve as she needed to try Aimovig and Ajovy first Devices/procedures: Tried Botox x1 in September 2021 - not effective and had worse pain afterwards lasting several weeks Family Hx: Family history of migraine -- dad Allergies: Review of patient's allergies indicates: No Known Allergies Social Hx: Social History Socioeconomic History Marital status: Domestic Partner Number of children: 0 Occupational History Occupation: insurance auditing Employer: [email or web address] Tobacco Use Smoking status: Never Smokeless tobacco: Never Vaping Use Vaping Use: Never used Substance and Sexual Activity Alcohol use: Yes Comment: rare- once a month Drug use: No Sexual activity: Yes Partners: Male control/protection: Surgical Comment: BTL Social History Narrative [place] partner Social Determinants of Health Food Insecurity: No Food Insecurity (09/04/2022) Hunger Vital Sign Worried About Running Out of Food in the Last Year: Never true Ran Out of Food in the Last Year: Never true Tobacco -- none Illicit drugs -- none Occupation -- manager speech OBSTETRIC/GYNECOLOGIC HISTORY: Not planning on getting ROS: REVIEW OF SYSTEMS: A complete 11 point review of systems was performed. Mental Status: [ ] Confusion [ ] Poor memory [ ] Speech difficulty [ ] Word finding difficulty [ ] Difficulty read/writing [ ] Forgetting appointments [ ] Lost while driving [ ] Change in sleep habits [ ] Lost while driving [ ] Excessive daytime drowsiness [ ] Loss of interest in activities [ ] Loss of consciousness Cranial nerves: [ ] Change in smell [ ] Double vision [ ] Blurred vision [ ] Loss of vision [ ] Bright lines or flashes in vision [ ] Altered facial sensation [ ] Difficulty chewing [ ] Weakness of face [ ] Ringing in ears [ ] Diminished hearing [ ] Spinning sensation [ ] Difficulty swallowing Motor, Senosry, Coordination: [ ] Difficulty standing [ ] Difficulty reaching [ ] Difficulty using hands [ ] Difficulty using feet [ ] Loss of muscle bulk [ ] Muscle twitching [ ] Muscle pain/cramps [ ] Incoordination [ ] Balance difficulty [ ] Involuntary movements [ ] Tremor [ ] Difficulty walking [ ] Numbness or tingling [ ] Urinary difficulty [ ] Bowel control difficulty [ ] Light headedness [ ] Fainting [ ] Change in sweating Systemic: [ ] Weight gain [ ] Weight loss [ ] Cold intolerance [ ] Heat intolerance [ ] Fever [ ] Chills [ ] Hair loss [ ] Shortness of breath [ ] Palpitations [ ] Chest pain [ ] Heart burn or acid reflux [ ] Joint pain [ ] Abdominal pain [ ] Night sweats [ ] Swollen glands [ ] Skin rash [ ] Nausea [ ] Vomiting [ ] Constipation [ ] Diarrhea [ ] Other: VITALS: 03/08/2022 03/02/2022 02/25/2022 BP: 122/80 132/84 114/72 BP Site: -- -- Left Arm BP Position: -- -- Sitting BP Cuff Size: -- -- Regular Pulse: -- 99 97 Resp: -- 16 16 Temp: -- 37 C (98.6 F) 36.7 C (98.1 F) Temp src: -- Tympanic -- SpO2: -- 97 % 96 % ra, rest Weight: 113.7 kg (250 lb 9.6 oz) 113.4 kg (250 lb) 112.9 kg (249 lb) Height: 1.676 m (5' 6") 1.676 m (5' 6") 1.676 m (5' 6") BMI 39.8 PHYSICAL EXAM: Mental Status: Alert, awake, and oriented with intact recent and remote memory. Full attention span, concentration, and fund of knowledge. Language: Speech is fluent and comprehension intact. Cranial Nerves: There is no ptosis. Extraocular movements are intact without nystagmus. Facial strength and sensation is symmetric, normal tongue position, speech is clear with no dysarthria, shoulder shrugs are full. Hearing is normal and symmetric to finger rub. Sensory: Intact to light touch. Motor: No tremors, no pronator drift. Able to get up out of a chair. Fine finger movements intact. Able to walk on the heels/toes. Coordination: No axial instability. Accurate finger to nose bilaterally. PAULO intact. Gait: Normal, narrow-based gait; Able to tandem well. * Physical exam was limited in the context of a video visit. Unable to perform manual motor exam, detailed sensory exam, full cranial nerve testing, reflexes, and tone exam. Labs: CBC Results: Results for orders placed or performed in visit on 07/13/13 CBC Result Value Ref Range WBC 4.41 4.00 - 10.80 K/uL RBC 4.13 3.85 - 5.15 M/uL HGB 13.0 12.0 - 14.5 g/dL HCT 38.4 36.0 - 44.5 % MCV 93.0 81.5 - 97.5 fL MCH 31.5 27.0 - 34.0 pg MCHC 33.9 32.0 - 36.0 g/dL RDW 13.1 11.5 - 15.5 % PLT 237 140 - 400 K/uL MPV 10.2 6.6 - 11.1 fL Basic Panel Results: Results for orders placed or performed in visit on 04/12/15 BASIC METAB PANEL, BMP Result Value Ref Range BUN 14 6 - 20 mg/dL Creatinine 0.8 0.5 - 1.0 mg/dL Sodium 141 135 - 146 mmol/L Potassium 4.4 3.5 - 5.1 mmol/L Chloride 104 98 - 107 mmol/L CO2 23 22 - 32 mmol/L Anion Gap 14 7 - 15 mmol/L Glucose 92 70 - 120 mg/dL Calcium 9.4 8.3 - 10.5 mg/dL Estimated Glomerular Filtration Rate >60.0 >60 Imaging: --- Neurodiagnostics --- MRI Brain 10 and 20 years ago - reportedly normal per patient (images not in out system) --- Eye Examination --- 2020 dilated - no papilledema per patient report Neuro Migraine Disability Assessment ([place]) Question 02/15/2023 9:09 AM EST - Filed by Patient Please select your work status. Work full-time or part-time Please answer the following questions about ALL of the headaches you have had over the last 3 months. Input your answer in the box below each question. Input zero if you did not have the activity in the last 3 months. On how many days in the last 3 months did you miss work or school because of your headaches? (range: 0 - 90) 6 How many days in the last 3 months was your productivity at work or school reduced by half or more because of your headaches? (Do not include days you counted in question 1 where you missed work or school.) (range: 0 - 90) 12 On how many days in the last 3 months did you not do household work (such as housework, home repairs and maintenance, shopping, caring for children and relatives) because of your headaches? (range: 0- 90) 4 How many days in the last 3 months was your productivity in household work reduced by half or more because of your headaches? (Do not include days you counted in question 3 where you did not do household work.) (range: 0 - 90) 8 On how many days in the last 3 months did you miss family, social or leisure activities because of your headaches? (range: 0 - 90) 2 On how many days in the last 3 months did you have a headache? (If a headache lasted more than 1 day, count each day.) (range: 0 - 90) 45 On a scale of 0-10, on average, how painful were these headaches? (Where 0=no pain at all, and 10=pain as bad as it can be.) 7 Total Disability Score (range: 0 - 450) 32 (Severe Disability: Grade IV) Myc Visit Accident Related Question Question 02/15/2023 9:09 AM EST - Filed by Patient Is this visit related to an accident? (i.e work, motor vehicle) No Assessment and Plan: The patient had chronic migraine without aura. She has menstrually related migraine. She has a family history of migraine. Migraine omorbidities include anxiety, depression, and obesity. Her MIDAS isconsistent with severe disability. She has tried many migraine preventive medications and has either not tolerated them or they were not effective. Thus, she was started on a CGRP inhibitor (Aimovig)for migraine prevention. She has had overall improvement with reduction in migraine frequency by >75%. Twill optimize her migraine regimen further as outlined below. Currently diagnosis is episodic migraine without aura of low to moderate frequency. Additional diagnostic testing and studies: not indicated at this time, but may consider if headachered flags/changes occur Preventive treatment: Continue Aimovig 140mg monthly injections as it has been effective thus far Start Nutraceuticals: Magnesium 500mg daily + Riboflavin (Vitamin B2) 400mg daily + Coenzyme Q10 100mg three times per day Acute treatment: Stop eletriptan 40 mg prn as not really effective for her Start Ubrelvy 100mg prn Can combine above with Naproxen 500 mg prn Continue Compazine 10mg prn for nausea Limit all acute agents to 2-3 per week to avoid MOH Lifestyle Modification to include avoid skipping meals, avoid excessive caffeine, encourage aerobicexercise,weight loss, stress management, restorative sleep, adequate hydration, trigger identification and avoidance and headache diary (migraine mario andressa) Continue to follow with sleep medicine Follow-up: 4 months (sooner if needed) Sally Portillo DO Headache Specialist Department of Neurology [facility] I spent a total of 40-54 minutes (exact time 41 mins) on the date of service in preparation, delivery, and documentation of the care provided to Adria Chance excluding any time spent in the performance of separately billed services. documented in this encounter Plan of Treatment Upcoming Encounters Date Type Department Care Team (Late st Contact Info) Description 04/08/2023 7:15 AM EST Office Visit Gynecology/Obstetrics Gordon Leung [address] [place] [address] Tati Clemons PA-C [address] [place] [id number] 05/31/2023 8:40 AM EDT [facility] [address] [place] [address] Sally Portillo, [address] [place] [address] Health Maintenance Due Date Last [...] as of this encounter Visit Diagnoses Diagnosis Migraine without aura and without status migrainosus, not intractable- Primary Migraine without aura, without mention of intractable migraine without mention of status migrainosus documented in this encounter Advance Directives Latest [...] Discussed due to patient's condition Care Teams Food Safety Scientist Relationship Specialty Start Date End Date Katherine Gonzales DO [address] [facility] [place] [id number] PCP - General Family Medicine 09/14/18 documented as of this encounter
[2023-03-27] MEDS: SODIUM CHLORIDE 0.9% 1,000 ML IV SCH ×2 (19:01→20:10)
--- NOTE | 2023-03-27 19:06 | Emergency Department Note ---
Impression & Plan Cellulitis and abscess of buttock ED Provider Note NAME: AMANDA COSTA AGE: 37 SEX: F : 1985 ARRIVES VIA: Walk-In INFORMANT: Patient, ED PROVIDER(S): Levar Mcmullen MD CHIEF COMPLAINT: Fever, sore on buttocks HPI: This is a 37-year-old female presenting for sore on her buttocks. Patient states that starting Tuesday she felt a slight pain at the top of her buttocks. She thought she had injured herself. However today she noticed that it was red and swollen. She thinks that it may have opened up as well. She notes that throughout the day she has had now chills and as well as fevers. She has had no cough, congestion, shortness of breath. ROS: See above HPI for pertinent positives & negatives. A total of 10 systems reviewed and were otherwise negative. PAST MEDICAL HISTORY: See Below PAST SURGICAL HISTORY: See Below FAMILY HISTORY: See Below SOCIAL HISTORY: See Below HOME MEDICATIONS: See Below ALLERGIES: See Below VITALS: See Below PHYSICAL EXAMINATION: General: resting comfortably in no acute distress Head: Normocephalic and atraumatic Eyes: Normal inspection, extraocular muscles intact Ear, nose, throat: Normal external exam Neck: Normal range of motion Respiratory: lungs clear to auscultation bilaterally Cardiovascular: Regular rate/rhythm, no murmur GI: soft, nontender, no guarding or rebound : Top left gluteal fold shows significant erythema, fluctuance and tenderness Extremities: nontender, moves all extremities Neuro: The patient awake and alert, appropriately conversive, no focal deficits, symmetric faces Skin: Warm, dry, and intact MEDICAL DECISION MAKING: This is a 37-year-old female presenting for sore on her buttocks. Concern for cellulitis versus abscess, possibly Ravi's gangrene. Will do septic workup as well as broad-spectrum antibiotics at this time. patient is febrile here as well as tachycardic -Blood work returns with no leukocytosis, slight anemia. -No electrolyte disturbances, no lactic acid elevation, no transaminitis or troponin elevation -Patient CT of the abdomen/pelvis did not reveal any is but does reveal a cellulitis versus phlegmon -With patient's current fever, chills, tachycardia, will admit for further rule out of sepsis. Blood cultures were taken and sent currently. At time is no drainable abscess. Differential diagnosis: Ravi's gangrene, cellulitis, perirectal abscess, gluteal abscess, viral syndrome ER treatment provided: See below Diagnostics interpreted by me: ECG: ECG independently interpreted by me with sinus tachycardia, rate of 122, normal axis, normal AR, normal QRS, normal QTc, no ST segment elevations consistent with STEMI criteria Cardiac Monitoring: An order was placed for continuous cardiac monitoring. The monitor shows a rate of 105 with sinus rhythm. Laboratory studies: As stated above and show below. Imaging studies: See below. Past Med/Surg History Social History Smoking Status: Never smoker Hx Alcohol Use: Yes Hx Substance Use: No Preferred Language: Irish Communication Ability: Effective Automatic Grinder Operator Required: No Beliefs That Will Affect Care: None Current Living Situation: Spouse Feels Safe at Home: Yes Safety Concerns: Feels Safe At This Time Assistive Devices: Glasses Allergies Allergies Allergy/AdvReac Type Severity Reaction Status Date / Time No Known Allergies Allergy Unverified 03/27/23 19:51 Home Meds Home Medications Medication Instructions Recorded Confirmed aripiprazole 2 mg tablet 2 mg PO HS 03/27/23 03/27/23 citalopram 40 mg tablet 40 mg PO HS 03/27/23 03/27/23 erenumab-aooe 140 mg/mL 140 mg subcut MO 03/27/23 03/27/23 subcutaneous auto-injector (Aimovig Autoinjector) naproxen 500 mg tablet 500 mg PO DIRECTED PRN Migraine 03/27/23 03/27/23 Headache trazodone 50 mg tablet 150 mg PO HS 03/27/23 03/27/23 ubrogepant 100 mg tablet (Ubrelvy) 100 mg PO DIRECTED PRN Migraine 03/27/23 03/27/23 Headache Results & Data (ED) Vital Signs Vital Signs - 24 hr 03/27/23 18:24 03/27/23 18:32 03/27/23 18:33 Temperature 39.2 C H 39.1 C H Temperature Source Temporal Artery Scan Oral Pulse Rate 140 H Pulse Rate [Apical] 133 H 102 H Respiratory Rate 22 18 18 Respiratory Effort / Characteristics Non-Labored Spontaneous Respiratory Depth Normal Respiratory Pattern Regular Blood Pressure 158/88 H Blood Pressure [Right Arm] 139/79 134/83 Blood Pressure Mean 111 Blood Pressure Mean [Right Arm] 99 100 Pulse Oximetry 99 96 98 Oxygen Delivery Method Room Air Room Air Sepsis Recent Fever Within 48 Hours No Sepsis New/Unexplained Change in Mental Status N/A Sepsis Action Taken by Nursing No Action Required 03/27/23 18:33 03/27/23 18:33 03/27/23 18:46 Temperature 38.5 C H Temperature Source Oral Pulse Rate 121 H Pulse Rate [Apical] 107 H 108 H Respiratory Rate 18 18 Respiratory Effort / Characteristics Respiratory Depth Respiratory Pattern Blood Pressure Blood Pressure [Right Arm] 138/87 137/76 Blood Pressure Mean Blood Pressure Mean [Right Arm] 104 96 Pulse Oximetry 99 Oxygen Delivery Method Room Air Sepsis Recent Fever Within 48 Hours Sepsis New/Unexplained Change in Mental Status Sepsis Action Taken by Nursing 03/27/23 19:09 03/27/23 19:15 03/27/23 19:15 Temperature Temperature Source Pulse Rate Pulse Rate [Apical] 107 H 107 H Respiratory Rate 18 18 Respiratory Effort / Characteristics Respiratory Depth Respiratory Pattern Blood Pressure Blood Pressure [Right Arm] 134/83 138/89 Blood Pressure Mean Blood Pressure Mean [Right Arm] 100 105 Pulse Oximetry 99 98 98 Oxygen Delivery Method Room Air Sepsis Recent Fever Within 48 Hours Sepsis New/Unexplained Change in Mental Status Sepsis Action Taken by Nursing 03/27/23 19:30 03/27/23 20:00 03/27/23 20:09 Temperature 38.5 C H Temperature Source Oral Pulse Rate Pulse Rate [Apical] 103 H 103 H 98 H Respiratory Rate 18 18 18 Respiratory Effort / Characteristics Respiratory Depth Respiratory Pattern Blood Pressure Blood Pressure [Right Arm] 137/76 130/73 130/73 Blood Pressure Mean Blood Pressure Mean [Right Arm] 96 92 92 Pulse Oximetry 99 99 99 Oxygen Delivery Method Sepsis Recent Fever Within 48 Hours Sepsis New/Unexplained Change in Mental Status Sepsis Action Taken by Nursing 03/27/23 20:15 03/27/23 20:30 03/27/23 20:45 Temperature Temperature Source Pulse Rate Pulse Rate [Apical] 103 H 108 H 105 H Respiratory Rate 18 18 19 Respiratory Effort / Characteristics Respiratory Depth Respiratory Pattern Blood Pressure Blood Pressure [Right Arm] 144/92 H 130/76 144/72 H Blood Pressure Mean Blood Pressure Mean [Right Arm] 109 94 96 Pulse Oximetry 99 99 99 Oxygen Delivery Method Room Air Room Air Sepsis Recent Fever Within 48 Hours Sepsis New/Unexplained Change in Mental Status Sepsis Action Taken by Nursing 03/27/23 21:00 03/27/23 21:15 03/27/23 21:30 Temperature 37.6 C Temperature Source Oral Pulse Rate Pulse Rate [Apical] 102 H 104 H 100 H Respiratory Rate 18 18 18 Respiratory Effort / Characteristics Non-Labored Non-Labored Respiratory Depth Normal Normal Respiratory Pattern Blood Pressure Blood Pressure [Right Arm] 145/65 H 160/69 H 148/61 H Blood Pressure Mean Blood Pressure Mean [Right Arm] 91 99 90 Pulse Oximetry 99 98 99 Oxygen Delivery Method Room Air Room Air Sepsis Recent Fever Within 48 Hours Sepsis New/Unexplained Change in Mental Status Sepsis Action Taken by Nursing 03/27/23 21:45 Temperature Temperature Source Pulse Rate Pulse Rate [Apical] 102 H Respiratory Rate 18 Respiratory Effort / Characteristics Respiratory Depth Respiratory Pattern Blood Pressure Blood Pressure [Right Arm] 149/75 H Blood Pressure Mean Blood Pressure Mean [Right Arm] 99 Pulse Oximetry 99 Oxygen Delivery Method Sepsis Recent Fever Within 48 Hours Sepsis New/Unexplained Change in Mental Status Sepsis Action Taken by Nursing Laboratory Data 03/27/23 18:51 03/27/23 18:51 Lab Results 03/27/23 03/27/23 03/27/23 Range/Units 18:51 18:57 20:49 WBC 8.97 (4.8-10.8) K/ul RBC 3.92 L (4.20-5.40) M/uL Hgb 11.8 L (12.0-16.0) g/dl Hct 35.3 L (37.0-47.0) % MCV 90.1 (80.0-100.0) fL MCH 30.1 (25.0-34.0) pg MCHC 33.4 (32.0-36.0) g/dL RDW Std Deviation 42.0 (36.4-46.3) fL RDW Coeff of Magnus 12.9 (11.5-14.5) % Plt Count 281 (130-400) K/uL MPV 9.2 L (9.4-12.4) fL Immature Gran % (Auto) 0.2 % Neut % (Auto) 80.5 % Lymph % (Auto) 8.5 % [place] % (Auto) 8.8 % Eos % (Auto) 1.7 % Baso % (Auto) 0.3 % Neut # (Auto) 7.22 H (1.40-6.50) K/uL Lymph # (Auto) 0.76 L (1.20-3.40) K/uL [place] # (Auto) 0.79 H (0.11-0.59) K/uL Eos # (Auto) 0.15 (0.00-0.50) K/uL Baso # (Auto) 0.03 (0.00-0.20) K/uL Immature Gran # (Auto) 0.02 (0.01-0.20) K/uL Sodium 136 (136-145) mmol/L Potassium 4.1 (3.5-5.1) mmol/L Chloride 104 (98-107) mmol/L Carbon Dioxide 25 (21-32) mmol/L Anion Gap 7 (3-11) BUN 11 (6-23) mg/dl Creatinine 0.81 (0.6-1.2) mg/dl Est Cr Clr Drug Dosing 123.0 ml/min Est GFR ( Amer) 106.8 ml/min Est GFR (Non-Af Amer) 92.1 ml/min BUN/Creatinine Ratio 13.6 (10-20) Glucose 114 H (70-99(Fasting)) mg/dl Lactate 1.3 (0.4-2.0) mmol/L Calcium 9.1 (8.6-10.3) mg/dl Magnesium 1.8 (1.7-2.4) mg/dl Total Bilirubin 0.4 (0.2-1.0) mg/dl Direct Bilirubin 0.0 (0-0.2) mg/dl AST 16 (13-39) U/L ALT 20 (7-52) U/L Alkaline Phosphatase 67 (34-104) U/L Troponin I High Sens < 2.3 (0-14) pg/ml Total Protein 6.8 (6.0-8.3) gm/dl Albumin 4.2 (3.4-5.0) gm/dl Procalcitonin 0.05 (0-0.5) ng/ml Urine Color Yellow Urine Appearance Cloudy A (Clear) Urine pH 8.0 H (4.5-7.5) Ur Specific [place] 1.015 (1.000-1.030) Urine Protein Negative (Negative) Urine Glucose (UA) Negative (Negative) Urine Ketones Negative (Negative) Urine Blood 1+ H (Negative) Urine Nitrite Negative (Negative) Urine Bilirubin Negative (Negative) Urine Urobilinogen Negative (Negative) Ur Leukocyte Esterase Negative (Negative) Urine RBC 0-4 (0-4) /hpf Urine WBC 0-5 (0-5) /hpf Ur Epithelial Cells 5-10 H (0-5) /lpf Urine Bacteria 1+ H (Negative) Urine Test Negative (Negative) Adenovirus (PCR) Not Detected (NotDetected) B. pertussis DNA (PCR) Not Detected (NotDetected) B.parapertussis DNA PCR Not Detected (NotDetected) C. pneumoniae DNA (PCR) Not Detected (NotDetected) Coronavirus OC43 (PCR) Not Detected (NotDetected) Coronavirus HKU1 (PCR) Not Detected (NotDetected) Coronavirus 229E (PCR) Not Detected (NotDetected) SARS-CoV-2 (PCR) Not Detected (NotDetected) Coronavirus NL63 (PCR) Not Detected (NotDetected) Human Metapneumovir PCR Not Detected (NotDetected) Influenza Type A (PCR) Not Detected (NotDetected) Influenza Type B (PCR) Not Detected (NotDetected) M. pneumoniae (PCR) Not Detected (NotDetected) Parainfluenza 1 (PCR) Not Detected (NotDetected) Parainfluenza 2 (PCR) Not Detected (NotDetected) Parainfluenza 3 (PCR) Not Detected (NotDetected) Parainfluenza 4 (PCR) Not Detected (NotDetected) RSV (PCR) Not Detected (NotDetected) Entero/Rhino (PCR) Not Detected (NotDetected) Administered Medications Aripiprazole (Aripiprazole 1 Mg/Ml Oral Soln 150 Ml Btl) 2 mg PO HS INGRID Stop: 04/26/23 22:29 Last Admin: 03/27/23 23:51 Dose: 2 mg Documented By: AMS Citalopram Hydrobromide (Citalopram 40 Mg Tab) 40 mg PO HS INGRID Stop: 04/26/23 22:04 Last Admin: 03/27/23 23:51 Dose: 40 mg Documented By: AMS Sodium Chloride (Nss) 1,000 mls @ 80 mls/hr IV .[id number] ONE Stop: 03/28/23 09:24 Last Admin: 03/27/23 21:34 Dose: 80 mls/hr Documented By: KHANH Ketorolac Tromethamine (Ketorolac Tromethamine 15 Mg/Ml Vial) 15 mg IV Q6H PRN PRN Reason: Pain Stop: 04/01/23 21:59 Last Admin: 03/28/23 00:50 Dose: 15 mg Documented By: YANNA Trazodone HCl (Trazodone Hcl 50 Mg Tab) 150 mg PO HS INGRID Stop: 04/26/23 22:04 Last Admin: 03/27/23 23:51 Dose: 150 mg Documented By: YANNA Discontinued Medications Acetaminophen (Acetaminophen 325 Mg Tab) 650 mg PO NOW STA Stop: 03/27/23 20:43 Last Admin: 03/27/23 20:46 Dose: 650 mg Documented By: KHANH Sodium Chloride (Nss) 1,000 mls @ 999 mls/hr IV .Q1H1M INGRID Stop: 03/27/23 20:45 Last Infusion: 03/27/23 21:39 Dose: Infused Documented By: Admin: 03/27/23 20:10 Dose: 999 mls/hr Documented By: Infusion: 03/27/23 20:02 Dose: Infused Documented By: Admin: 03/27/23 19:01 Dose: 999 mls/hr Documented By: KHANH Vancomycin HCl 2,250 mg/ (Sodium Chloride) 545 mls @ 200 mls/hr IV NOW ONE Stop: 03/27/23 22:03 Last Infusion: 03/27/23 23:28 Dose: Infused Documented By: Admin: 03/27/23 20:16 Dose: 200 mls/hr Documented By: KHANH Piperacillin Sod/Tazobactam Sod (Zosyn) 4.5 gm in 100 mls @ 200 mls/hr IV NOW ONE Stop: 03/27/23 19:49 Last Infusion: 03/27/23 20:13 Dose: Infused Documented By: Admin: 03/27/23 19:32 Dose: 200 mls/hr Documented By: KHANH Magnesium Sulfate/Dextrose (Magnesium Sulfate / D5w) 1 gm in 100 mls @ 50 mls/hr IV ONE ONE Stop: 03/27/23 23:59 Last Admin: 03/28/23 00:09 Dose: 50 mls/hr Documented By: YANNA Ioversol (Optiray 320 500ml) 88 ml IV ONCE ONE Stop: 03/27/23 19:49 Last Admin: 03/27/23 19:48 Dose: 88 ml Documented By: YAZ Imaging Data Radiologist's Impression: Chest X-Ray 03/27/23 18:33 XR chest 1V portable CLINICAL HISTORY: Sepsis TECHNIQUE: Single frontal radiograph of the chest was obtained. Comparison: Comparison is made to chest radiograph 06/25/2014 FINDINGS: Exam is limited by underpenetration. The cardiomediastinal silhouette is normal. The lungs are clear. No evidence of pleural effusion or pneumothorax. IMPRESSION: No acute chest disease. ACT 112: Negative or not required by law. Electronically signed by: Kavon Walls M.D. 03/27/2023 7:03 PM Abdomen/Pelvis CT 03/27/23 18:44 CT abd pelvis IV con only CLINICAL HISTORY: gluteal abscess? r/o Ravi's gangrene TECHNIQUE: Helical axial images of the abdomen and pelvis were obtained and displayed. Automated dose lowering techniques and/or adjustment according to patient size were utilized for this exam. This exam was performed with intravenous contrast. CT DOSE: 1283.57 mGy.cm COMPARISON: None available at the time of this dictation. FINDINGS: Lower chest: No acute abnormality. Liver: Unremarkable. No focal lesions are seen. Gallbladder and biliary tree: No calcified gallstones. Normal caliber wall. No intra- or extrahepatic biliary ductal dilation. Pancreas: Unremarkable, no focal lesions. Spleen: Splenule is incidentally noted. Adrenals: Unremarkable. Kidneys and ureters: Unremarkable. Bladder: Unremarkable. Reproductive organs: Unremarkable. Bowel: The appendix is normal. Lymph nodes Retroperitoneal: Unremarkable. Pelvic: Unremarkable. Mesenteric: Unremarkable. Peritoneum: Normal. Vessels: Unremarkable. Abdominal wall: There is a phlegmonous collection in the buttocks just left of midline measuring approximately 17 x 44 mm though without well-defined enhancing walsh. Surrounding fat stranding is seen. Bones: Degenerative changes in the visualized spine. IMPRESSION: Phlegmon in the left paramedian buttocks without well-developed enhancing walsh which may represent a developing abscess. Surrounding cellulitis is seen. No intraperitoneal involvement or gas-forming infection is seen. ACT 112: Negative or not required by law. Electronically signed by: Kavon Walls M.D. 03/27/2023 8:33 PM Discharge Plan Visit Data Chief Complaint: Infection, Wound Stated Complaint: OPEN WOUND BY TAILBONE ED Provider: Levar Mcmullen Discharge Problem: Cellulitis and abscess of buttock Patient Disposition: Admitted As Inpatient Discharge Instructions Interventions: ED Discharge Assessment Last Done: 03/27/23 23:15
[2023-03-27 19:12] LABS: Basophils # (auto) 0.03 K/uL (0.00-0.20); Basophils % (auto) 0.3 %; Eosinophils # (auto) 0.15 K/uL (0.00-0.50); Eosinophils % (auto) 1.7 %; Hematocrit (blood only) 35.3 % (37.0-47.0); Hemoglobin 11.8 g/dl (12.0-16.0); Immature Granulocytes # (auto) 0.02 K/uL (0.01-0.20); Immature Granulocytes % (auto) 0.2 %; Lymphocytes # (auto) 0.76 K/uL (1.20-3.40); Lymphocytes % (auto) 8.5 %; Mean Corpuscular Hemoglobin 30.1 pg (25.0-34.0); Mean Corpuscular Hgb Conc 33.4 g/dL (32.0-36.0); Mean Corpuscular Volume 90.1 fL (80.0-100.0); Mean Platelet Volume 9.2 fL (9.4-12.4); Monocytes # (auto) 0.79 K/uL (0.11-0.59); Monocytes % (auto) 8.8 %; Neutrophils # (auto) 7.22 K/uL (1.40-6.50); Neutrophils % (auto) 80.5 %; Platelet Count 281 K/uL (130-400); RDW Coefficient of Variation 12.9 % (11.5-14.5); Red Blood Count 3.92 M/uL (4.20-5.40); White Blood Count 8.97 K/ul (4.8-10.8)
[2023-03-27] MEDS ORDERED: VANCOMYCIN HCL 2,250 MG in SODIUM CHLORIDE 0.9% 500 ML IV ONE (19:20)
[2023-03-27] MEDS ORDERED: VANCOMYCIN CONSULT ACTIVE PRN (19:20)
[2023-03-27] MEDS ORDERED: PIPERACILLIN/TAZOBACTAM 4.5 GM/100 ML BAG IV ONE (19:20)
[2023-03-27 19:30] LABS: Alanine Aminotransferase 20 U/L (7-52); Albumin Level 4.2 gm/dl (3.4-5.0); Alkaline Phosphatase 67 U/L (34-104); Anion Gap 7 (3-11); Aspartate Aminotransferase 16 U/L (13-39); BUN Creatinine Ratio 13.6 (10-20); Bilirubin,Total 0.4 mg/dl (0.2-1.0); Blood Urea Nitrogen 11 mg/dl (6-23); Calcium 9.1 mg/dl (8.6-10.3); Carbon Dioxide 25 mmol/L (21-32); Chloride 104 mmol/L (98-107); Est GFR (African American) 106.8 ml/min; Est GFR (Non-African American) 92.1 ml/min; Glucose 114 mg/dl (70-99(Fasting)); Magnesium 1.8 mg/dl (1.7-2.4); Potassium 4.1 mmol/L (3.5-5.1); Sodium 136 mmol/L (136-145); Total Protein 6.8 gm/dl (6.0-8.3)
[2023-03-27 19:36] LABS: Troponin I High Sensitivity < 2.3 pg/ml (0-14)
[2023-03-27] MEDS ORDERED: OPTIRAY 320 500ml IV ONE (19:48)
[2023-03-27 19:54] LABS: Adenovirus PCR Not Detected (NotDetected); Bordetella parapertussis PCR Not Detected (NotDetected); Bordetella pertussis PCR Not Detected (NotDetected); Chlamydia pneumoniae PCR Not Detected (NotDetected); Coronavirus 229E PCR Not Detected (NotDetected); Coronavirus CoV-2 (COVID19)PCR Not Detected (NotDetected); Coronavirus HKU1 PCR Not Detected (NotDetected); Coronavirus NL63 PCR Not Detected (NotDetected); Coronavirus OC43PCR Not Detected (NotDetected); Human Metapneumovirus PCR Not Detected (NotDetected); Influenza A PCR Not Detected (NotDetected); Influenza B PCR Not Detected (NotDetected); Mycoplasma pneumoniae PCR Not Detected (NotDetected); Parainfluenza Virus 1 PCR Not Detected (NotDetected); Parainfluenza Virus 2 PCR Not Detected (NotDetected); Parainfluenza Virus 3 PCR Not Detected (NotDetected); Parainfluenza Virus 4 PCR Not Detected (NotDetected); Respiratory Syncytial VirusPCR Not Detected (NotDetected); Rhinovirus/Enterovirus PCR Not Detected (NotDetected)
--- NOTE | 2023-03-27 20:35 | CT Scan Report ---
CT abd pelvis IV con only CLINICAL HISTORY: gluteal abscess? r/o Ravi's gangrene TECHNIQUE: Helical axial images of the abdomen and pelvis were obtained and displayed. Automated dose lowering techniques and/or adjustment according to patient size were utilized for this exam. This e xam was performed with intravenous contrast. CT DOSE: 1283.57 mGy.cm COMPARISON: None available at the time of this dictation. FINDINGS: Lower chest: No acute abnormality. Liver: Unremarkable. No focal lesions are seen. Gallbladder and biliary tree: No calcified gallstones. Normal caliber wall. No intra- or extrahepatic biliary ductal dilation. Pancreas: Unremarkable, no focal lesions. Spleen: Splenule is incidentally noted. Adrenals: Unremarkable. Kidneys and ureters: Unremarkable. Bladder: Unremarkable. Reproductive organs: Unremarkable. Bowel: The appendix is normal. Lymph nodes Retroperitoneal: Unremarkable. Pelvic: Unremarkable. Mesenteric: Unremarkable. Peritoneum: Normal. Vessels: Unremarkable. Abdominal wall: There is a phlegmonous collection in the buttocks just left of midline measuring appr oximately 17 x 44 mm though without well-defined enhancing walsh. Surrounding fat stranding is seen. Bones: Degenerative changes in the visualized spine. IMPRESSION: Phlegmon in the left paramedian buttocks without well-developed enhancing walsh which may represent a developing abscess. Surrounding cellulitis is seen. No intraperitoneal involvement or gas-forming in fection is seen. ACT 112: Negative or not required by law. Electronically signed by: Kavon Walls M.D. 03/27/2023 8:33 PM
[2023-03-27] MEDS ORDERED: ACETAMINOPHEN 325 MG TAB PO STA (20:42)
[2023-03-27] MEDS ORDERED: SODIUM CHLORIDE 0.9% 1,000 ML IV ONE (20:55)
[2023-03-27 21:08] LABS: Appearance Urine Cloudy (Clear); Bilirubin Urine Negative (Negative); Blood Urine 1+ (Negative); Color Urine Yellow; Glucose Urine UA Negative (Negative); Ketones Urine Negative (Negative); Leukocyte Esterase Urine Negative (Negative); Nitrite Urine Negative (Negative); Protein Urine Negative (Negative); Specific Gravity Urine 1.015 (1.000-1.030); Urobilinogen Urine Negative (Negative)
[2023-03-27 21:37] LABS: Bacteria Urine 1+ (Negative); RBC Urine 0-4 /hpf (0-4); WBC Urine 0-5 /hpf (0-5)
--- NOTE | 2023-03-27 21:57 | History & Physical Report ---
Date of Service March 27, 2023 Assessment & Plan (1) Sepsis: Plan: Possible left buttock abscess Migraine, controlled on monthly Aivomig injections anxiety/mood disorder, at baseline Hyperglycemia rule out DM morbid obesity Medical telemetry CS, Cefepime and Doxycycline General surgery consult Re: Left buttock abscess N.p.o. in anticipation of procedure in a.m. Check hemoglobin A1c DVT prophylaxis per Lovenox subcu Full code Text document was generated using [employer] voice recognition software. It may contain grammatical or spelling errors. Kindly contact undersigned for clarification of any documentation item in question. History of Present Illness Chief Complaint: Buttock sore, fever Primary Care Provider: Katherine Gonzales DO History obtained from patient and records. Medical history significant for migraine, anxiety/mood disorder, morbid obesity, 2 days ago, patient noted painful swelling on the left buttock which subsequently worsened. No recollection of trauma. Patient had fever or chills. Denies chest pain, SOB, headache symptoms. No prior episodes. Vancomycin and Zosyn administered at the ER. Medical History as above Surgical History : Bilateral salpingectomy, dental surgery Family History : Migraine, dementia, breast cancer Personal/Social history : Non-smoker, occasional EtOH intake, works from home Allergies Allergy/AdvReac Type Severity Reaction Status Date / Time No Known Allergies Allergy Unverified 03/27/23 19:51 Home Medications Medication Instructions Recorded Confirmed Type aripiprazole 2 mg tablet 2 mg PO HS 03/27/23 03/27/23 History citalopram 40 mg tablet 40 mg PO HS 03/27/23 03/27/23 History erenumab-aooe 140 mg/mL 140 mg subcut MO 03/27/23 03/27/23 History subcutaneous auto-injector (Aimovig Autoinjector) naproxen 500 mg tablet 500 mg PO DIRECTED PRN Migraine 03/27/23 03/27/23 History Headache trazodone 50 mg tablet 150 mg PO HS 03/27/23 03/27/23 History ubrogepant 100 mg tablet (Ubrelvy) 100 mg PO DIRECTED PRN Migraine 03/27/23 03/27/23 History Headache Past Med/Surg History Social History Smoking Status: Never smoker Hx Alcohol Use: Yes Hx Substance Use: No Preferred Language: Rwandan Communication Ability: Effective Chip Machine Operator Required: No Beliefs That Will Affect Care: None Current Living Situation: Spouse Feels Safe at Home: Yes Safety Concerns: Feels Safe At This Time Assistive Devices: Glasses Review of Systems Review of Systems: As per HPI, all other systems reviewed and negative Physical Exam Physical Exam: GENERAL: Comfortable, morbidly obese, pleasant, no respiratory distress SKIN: Normal color, warm HEENT: Bespectacled, [place] palpebral conjunctivae, no ptosis, dry buccal mucosa NECK : Supple, short neck, no tenderness CHEST : CTA, no tenderness HEART : Tachycardic, no obvious murmurs ABDOMEN: Some distention, nontender BUTTOCK : Tender induration left buttock EXTREMITIES : Bilateral LE swelling, no LE tenderness, no other conspicuous deformities noted NEUROLOGIC : Coherent, no facial asymmetry, no other gross focality Results & Data Results & Data Vital Signs (Past 12 Hours) Vital Signs Temp Pulse Pulse Resp BP BP Pulse Ox 03/27/23 21:45 102 H 18 149/75 H 99 03/27/23 21:30 100 H 18 148/61 H 99 03/27/23 21:15 37.6 C 104 H 18 160/69 H 98 03/27/23 21:00 102 H 18 145/65 H 99 03/27/23 20:45 105 H 19 144/72 H 99 03/27/23 20:30 108 H 18 130/76 99 03/27/23 20:15 103 H 18 144/92 H 99 03/27/23 20:09 98 H 18 130/73 99 03/27/23 20:00 103 H 18 130/73 99 03/27/23 19:30 38.5 C H 103 H 18 137/76 99 03/27/23 19:15 107 H 18 138/89 98 03/27/23 19:15 98 03/27/23 19:09 107 H 18 134/83 99 03/27/23 18:46 121 H 03/27/23 18:33 38.5 C H 108 H 18 137/76 99 03/27/23 18:33 107 H 18 138/87 03/27/23 18:33 102 H 18 134/83 98 03/27/23 18:32 39.1 C H 133 H 18 139/79 96 03/27/23 18:24 39.2 C H 140 H 22 158/88 H 99 O2 Del Method 03/27/23 21:45 03/27/23 21:30 03/27/23 21:15 Room Air 03/27/23 21:00 Room Air 03/27/23 20:45 Room Air 03/27/23 20:30 03/27/23 20:15 Room Air 03/27/23 20:09 03/27/23 20:00 03/27/23 19:30 03/27/23 19:15 Room Air 03/27/23 19:15 03/27/23 19:09 03/27/23 18:46 03/27/23 18:33 Room Air 03/27/23 18:33 03/27/23 18:33 03/27/23 18:32 Room Air 03/27/23 18:24 Room Air Laboratory Results Laboratory Results WBC 8.97 K/ul (4.8-10.8) 03/27/23 18:51 RBC 3.92 M/uL (4.20-5.40) L 03/27/23 18:51 Hgb 11.8 g/dl (12.0-16.0) L 03/27/23 18:51 Hct 35.3 % (37.0-47.0) L 03/27/23 18:51 MCV 90.1 fL (80.0-100.0) 03/27/23 18:51 MCH 30.1 pg (25.0-34.0) 03/27/23 18:51 MCHC 33.4 g/dL (32.0-36.0) 03/27/23 18:51 RDW Std Deviation 42.0 fL (36.4-46.3) 03/27/23 18:51 RDW Coeff of Magnus 12.9 % (11.5-14.5) 03/27/23 18:51 Plt Count 281 K/uL (130-400) 03/27/23 18:51 MPV 9.2 fL (9.4-12.4) L 03/27/23 18:51 Immature Gran % (Auto) 0.2 % 03/27/23 18:51 Neut % (Auto) 80.5 % 03/27/23 18:51 Lymph % (Auto) 8.5 % 03/27/23 18:51 [place] % (Auto) 8.8 % 03/27/23 18:51 Eos % (Auto) 1.7 % 03/27/23 18:51 Baso % (Auto) 0.3 % 03/27/23 18:51 Neut # (Auto) 7.22 K/uL (1.40-6.50) H 03/27/23 18:51 Lymph # (Auto) 0.76 K/uL (1.20-3.40) L 03/27/23 18:51 [place] # (Auto) 0.79 K/uL (0.11-0.59) H 03/27/23 18:51 Eos # (Auto) 0.15 K/uL (0.00-0.50) 03/27/23 18:51 Baso # (Auto) 0.03 K/uL (0.00-0.20) 03/27/23 18:51 Immature Gran # (Auto) 0.02 K/uL (0.01-0.20) 03/27/23 18:51 Sodium 136 mmol/L (136-145) 03/27/23 18:51 Potassium 4.1 mmol/L (3.5-5.1) 03/27/23 18:51 Chloride 104 mmol/L (98-107) 03/27/23 18:51 Carbon Dioxide 25 mmol/L (21-32) 03/27/23 18:51 Anion Gap 7 (3-11) 03/27/23 18:51 BUN 11 mg/dl (6-23) 03/27/23 18:51 Creatinine 0.81 mg/dl (0.6-1.2) 03/27/23 18:51 Est Cr Clr Drug Dosing 123.0 ml/min 03/27/23 18:51 Est GFR ( Amer) 106.8 ml/min 03/27/23 18:51 Est GFR (Non-Af Amer) 92.1 ml/min 03/27/23 18:51 BUN/Creatinine Ratio 13.6 (10-20) 03/27/23 18:51 Glucose 114 mg/dl (70-99(Fasting)) H 03/27/23 18:51 Lactate 1.3 mmol/L (0.4-2.0) 03/27/23 18:51 Calcium 9.1 mg/dl (8.6-10.3) 03/27/23 18:51 Magnesium 1.8 mg/dl (1.7-2.4) 03/27/23 18:51 Total Bilirubin 0.4 mg/dl (0.2-1.0) 03/27/23 18:51 Direct Bilirubin 0.0 mg/dl (0-0.2) 03/27/23 18:51 AST 16 U/L (13-39) 03/27/23 18:51 ALT 20 U/L (7-52) 03/27/23 18:51 Alkaline Phosphatase 67 U/L (34-104) 03/27/23 18:51 Troponin I High Sens < 2.3 pg/ml (0-14) 03/27/23 18:51 Total Protein 6.8 gm/dl (6.0-8.3) 03/27/23 18: Albumin 4.2 gm/dl (3.4-5.0) 03/27/23 18:51 Procalcitonin 0.05 ng/ml (0-0.5) 03/27/23 18:51 Urine Color Yellow 03/27/23 20:49 Urine Appearance Cloudy (Clear) A 03/27/23 20:49 Urine pH 8.0 (4.5-7.5) H 03/27/23 20:49 Ur Specific [place] 1.015 (1.000-1.030) 03/27/23 20:49 Urine Protein Negative (Negative) 03/27/23 20:49 Urine Glucose (UA) Negative (Negative) 03/27/23 20:49 Urine Ketones Negative (Negative) 03/27/23 20:49 Urine Blood 1+ (Negative) H 03/27/23 20:49 Urine Nitrite Negative (Negative) 03/27/23 20:49 Urine Bilirubin Negative (Negative) 03/27/23 20:49 Urine Urobilinogen Negative (Negative) 03/27/23 20:49 Ur Leukocyte Esterase Negative (Negative) 03/27/23 20:49 Urine RBC 0-4 /hpf (0-4) 03/27/23 20:49 Urine WBC 0-5 /hpf (0-5) 03/27/23 20:49 Ur Epithelial Cells 5-10 /lpf (0-5) H 03/27/23 20:49 Urine Bacteria 1+ (Negative) H 03/27/23 20:49 Adenovirus (PCR) Not Detected (NotDetected) 03/27/23 18:57 B. pertussis DNA (PCR) Not Detected (NotDetected) 03/27/23 18:57 B.parapertussis DNA PCR Not Detected (NotDetected) 03/27/23 18:57 C. pneumoniae DNA (PCR) Not Detected (NotDetected) 03/27/23 18:57 Coronavirus OC43 (PCR) Not Detected (NotDetected) 03/27/23 18:57 Coronavirus HKU1 (PCR) Not Detected (NotDetected) 03/27/23 18:57 Coronavirus 229E (PCR) Not Detected (NotDetected) 03/27/23 18:57 SARS-CoV-2 (PCR) Not Detected (NotDetected) 03/27/23 18:57 Coronavirus NL63 (PCR) Not Detected (NotDetected) 03/27/23 18:57 Human Metapneumovir PCR Not Detected (NotDetected) 03/27/23 18:57 Influenza Type A (PCR) Not Detected (NotDetected) 03/27/23 18:57 Influenza Type B (PCR) Not Detected (NotDetected) 03/27/23 18:57 M. pneumoniae (PCR) Not Detected (NotDetected) 03/27/23 18:57 Parainfluenza 1 (PCR) Not Detected (NotDetected) 03/27/23 18:57 Parainfluenza 2 (PCR) Not Detected (NotDetected) 03/27/23 18:57 Parainfluenza 3 (PCR) Not Detected (NotDetected) 03/27/23 18:57 Parainfluenza 4 (PCR) Not Detected (NotDetected) 03/27/23 18:57 RSV (PCR) Not Detected (NotDetected) 03/27/23 18:57 Entero/Rhino (PCR) Not Detected (NotDetected) 03/27/23 18:57 Impressions Chest X-Ray 03/27/23 18:33 XR chest 1V portable CLINICAL HISTORY: Sepsis TECHNIQUE: Single frontal radiograph of the chest was obtained. Comparison: Comparison is made to chest radiograph 06/25/2014 FINDINGS: Exam is limited by underpenetration. The cardiomediastinal silhouette is normal. The lungs are clear. No evidence of pleural effusion or pneumothorax. IMPRESSION: No acute chest disease. ACT 112: Negative or not required by law. Electronically signed by: Kavon Walls M.D. 03/27/2023 7:03 PM Abdomen/Pelvis CT 03/27/23 18:44 CT abd pelvis IV con only CLINICAL HISTORY: gluteal abscess? r/o Ravi's gangrene TECHNIQUE: Helical axial images of the abdomen and pelvis were obtained and displayed. Automated dose lowering techniques and/or adjustment according to patient size were utilized for this exam. This exam was performed with intravenous contrast. CT DOSE: 1283.57 mGy.cm COMPARISON: None available at the time of this dictation. FINDINGS: Lower chest: No acute abnormality. Liver: Unremarkable. No focal lesions are seen. Gallbladder and biliary tree: No calcified gallstones. Normal caliber wall. No intra- or extrahepatic biliary ductal dilation. Pancreas: Unremarkable, no focal lesions. Spleen: Splenule is incidentally noted. Adrenals: Unremarkable. Kidneys and ureters: Unremarkable. Bladder: Unremarkable. Reproductive organs: Unremarkable. Bowel: The appendix is normal. Lymph nodes Retroperitoneal: Unremarkable. Pelvic: Unremarkable. Mesenteric: Unremarkable. Peritoneum: Normal. Vessels: Unremarkable. Abdominal wall: There is a phlegmonous collection in the buttocks just left of midline measuring approximately 17 x 44 mm though without well-defined enhancing walsh. Surrounding fat stranding is seen. Bones: Degenerative changes in the visualized spine. IMPRESSION: Phlegmon in the left paramedian buttocks without well-developed enhancing walsh which may represent a developing abscess. Surrounding cellulitis is seen. No intraperitoneal involvement or gas-forming infection is seen. ACT 112: Negative or not required by law. Electronically signed by: Kavon Walls M.D. 03/27/2023 8:33 PM Diagnostic Findings EKG as per my interpretation : Rate 120, sinus tachycardia, LAD, LAFB, no ischemia
[2023-03-27] MEDS ORDERED: oxyCODONE HCL IR 5 MG TAB (IMMEDIATE RELEASE) PO PRN (22:00)
[2023-03-27] MEDS ORDERED: MAGNESIUM SULFATE / D5W 1 GM/100 ML BAG IV ONE (22:00)
[2023-03-27] MEDS ORDERED: PROMETHAZINE HCL 12.5 MG in SODIUM CHLORIDE 0.9% 50 ML IV PRN (22:00)
[2023-03-27] MEDS ORDERED: LORazepam 0.5 MG TAB PO PRN (22:00)
[2023-03-27 22:46] LABS: Pregnancy Test, Urine Negative (Negative)
[2023-03-27] MEDS: traZODone HCL 50 MG TAB PO SCH (23:51)
[2023-03-27] MEDS: CITALOPRAM 40 MG TAB PO SCH (23:51)
[2023-03-27] MEDS: ARIPIprazole 1 MG/ML ORAL SOLN 150 ML BTL PO SCH (23:51)
[2023-03-28] MEDS: KETOROLAC TROMETHAMINE 15 MG/ML VIAL IV PRN ×2 (00:50→20:08)
[2023-03-28] MEDS: CEFEPIME 2,000 MG in SYRINGE 0 ML IV SCH ×3 (04:18→19:58)
--- NOTE | 2023-03-28 08:38 | Surgery Consultation ---
Date of Consultation March 28, 2023 Assessment & Plan (1) Cellulitis and abscess of buttock: 37-year-old woman with developing perirectal abscess of the left buttock. I discussed the risks and benefits of incision and drainage in the operating room under anesthesia. All questions were answered, she is agreeable to proceed. Consent has been obtained. We will take her to the operating room at the earliest convenience. History of Present Illness Reason for Consultation: Perirectal abscess Requesting Physician: Arleth Zambrano MD Attending Physician: Arleth Zambrano MD History of Present Illness 37-year-old woman presents with pain in her perirectal region starting on Tuesday . This persisted and worsened until Tuesday when she developed malaise, fevers, chills, increasing pain. She has been having normal bowel movements. She did have some drainage overnight. She denies nausea or vomiting. She denies ever having anything like this in the past. CT scan demonstrates left buttock phlegmon/abscess. Allergies Allergy/AdvReac Type Severity Reaction Status Date / Time No Known Allergies Allergy Unverified 03/27/23 19:51 Home Medications Medication Instructions Recorded Confirmed Type aripiprazole 2 mg tablet 2 mg PO HS 03/27/23 03/27/23 History citalopram 40 mg tablet 40 mg PO HS 03/27/23 03/27/23 History erenumab-aooe 140 mg/mL 140 mg subcut MO 03/27/23 03/27/23 History subcutaneous auto-injector (Aimovig Autoinjector) naproxen 500 mg tablet 500 mg PO DIRECTED PRN Migraine 03/27/23 03/27/23 History Headache trazodone 50 mg tablet 150 mg PO HS 03/27/23 03/27/23 History ubrogepant 100 mg tablet (Ubrelvy) 100 mg PO DIRECTED PRN Migraine 03/27/23 03/27/23 History Headache Patient History Social History Smoking Status: Never smoker Hx Alcohol Use: Yes Hx Substance Use: No Preferred Language: Pakistani Communication Ability: Effective Die Set Up Worker Required: No Beliefs That Will Affect Care: None Current Living Situation: Spouse Feels Safe at Home: Yes Safety Concerns: Feels Safe At This Time Assistive Devices: Glasses Review of Systems Review of Systems: All systems reviewed & are unremarkable except as noted in HPI & below Physical Exam Constitutional: WD/WN, vitals as above Eyes: PERRL, conjunctivae normal, anicteric sclerae Neck: trachea midline, no thyromegaly Respiratory: normal respiratory effort; no respiratory distress and no labored breathing Cardiovascular: Rate/Rhythm: regular rate and regular rhythm Gastrointestinal (Abdomen): Inspection/Auscultation: abdomen normal to inspection; abdomen not distended Percussion/Palpation: abdomen soft; abdomen nontender Left buttock with 5 cm area of erythema and induration, weeping sanguinous purulent fluid Skin: no rashes, warm and dry Psychiatric: A+Ox3, euthymic affect Results & Data Vital Signs (Past 12 Hours) Vital Signs Temp Pulse Pulse Pulse Resp BP BP 03/28/23 07:52 36.8 C 95 H 16 108/68 03/28/23 05:59 96 H 03/28/23 04:33 36.9 C 99 H 18 120/74 03/27/23 23:24 103 H 03/27/23 23:20 37.3 C 110 H 20 139/78 03/27/23 22:00 100 H 18 152/80 H 03/27/23 21:45 102 H 18 149/75 H 03/27/23 21:30 100 H 18 148/61 H 03/27/23 21:15 37.6 C 104 H 18 160/69 H 03/27/23 21:00 102 H 18 145/65 H 03/27/23 20:45 105 H 19 144/72 H Pulse Ox O2 Del Method 03/28/23 07:52 96 Room Air 03/28/23 05:59 03/28/23 04:33 96 Room Air 03/27/23 23:24 03/27/23 23:20 96 Room Air 03/27/23 22:00 99 03/27/23 21:45 99 03/27/23 21:30 99 03/27/23 21:15 98 Room Air 03/27/23 21:00 99 Room Air 03/27/23 20:45 99 Room Air Laboratory Results 03/27/23 03/27/23 03/27/23 Range/Units 20:49 18:57 18:51 WBC 8.97 (4.8-10.8) K/ul RBC 3.92 L (4.20-5.40) M/uL Hgb 11.8 L (12.0-16.0) g/dl Hct 35.3 L (37.0-47.0) % MCV 90.1 (80.0-100.0) fL MCH 30.1 (25.0-34.0) pg MCHC 33.4 (32.0-36.0) g/dL RDW Std Deviation 42.0 (36.4-46.3) fL RDW Coeff of Magnus 12.9 (11.5-14.5) % Plt Count 281 (130-400) K/uL MPV 9.2 L (9.4-12.4) fL Immature Gran % (Auto) 0.2 % Neut % (Auto) 80.5 % Lymph % (Auto) 8.5 % [place] % (Auto) 8.8 % Eos % (Auto) 1.7 % Baso % (Auto) 0.3 % Neut # (Auto) 7.22 H (1.40-6.50) K/uL Lymph # (Auto) 0.76 L (1.20-3.40) K/uL [place] # (Auto) 0.79 H (0.11-0.59) K/uL Eos # (Auto) 0.15 (0.00-0.50) K/uL Baso # (Auto) 0.03 (0.00-0.20) K/uL Immature Gran # (Auto) 0.02 (0.01-0.20) K/uL Sodium 136 (136-145) mmol/L Potassium 4.1 (3.5-5.1) mmol/L Chloride 104 (98-107) mmol/L Carbon Dioxide 25 (21-32) mmol/L Anion Gap 7 (3-11) BUN 11 (6-23) mg/dl Creatinine 0.81 (0.6-1.2) mg/dl Est Cr Clr Drug Dosing 123.0 ml/min Est GFR ( Amer) 106.8 ml/min Est GFR (Non-Af Amer) 92.1 ml/min BUN/Creatinine Ratio 13.6 (10-20) Glucose 114 H (70-99(Fasting)) mg/dl Lactate 1.3 (0.4-2.0) mmol/L Calcium 9.1 (8.6-10.3) mg/dl Magnesium 1.8 (1.7-2.4) mg/dl Total Bilirubin 0.4 (0.2-1.0) mg/dl Direct Bilirubin 0.0 (0-0.2) mg/dl AST 16 (13-39) U/L ALT 20 (7-52) U/L Alkaline Phosphatase 67 (34-104) U/L Troponin I High Sens < 2.3 (0-14) pg/ml Total Protein 6.8 (6.0-8.3) gm/dl Albumin 4.2 (3.4-5.0) gm/dl Procalcitonin 0.05 (0-0.5) ng/ml Urine Color Yellow Urine Appearance Cloudy A (Clear) Urine pH 8.0 H (4.5-7.5) Ur Specific [place] 1.015 (1.000-1.030) Urine Protein Negative (Negative) Urine Glucose (UA) Negative (Negative) Urine Ketones Negative (Negative) Urine Blood 1+ H (Negative) Urine Nitrite Negative (Negative) Urine Bilirubin Negative (Negative) Urine Urobilinogen Negative (Negative) Ur Leukocyte Esterase Negative (Negative) Urine RBC 0-4 (0-4) /hpf Urine WBC 0-5 (0-5) /hpf Ur Epithelial Cells 5-10 H (0-5) /lpf Urine Bacteria 1+ H (Negative) Urine Test Negative (Negative) Adenovirus (PCR) Not Detected (NotDetected) B. pertussis DNA (PCR) Not Detected (NotDetected) B.parapertussis DNA PCR Not Detected (NotDetected) C. pneumoniae DNA (PCR) Not Detected (NotDetected) Coronavirus OC43 (PCR) Not Detected (NotDetected) Coronavirus HKU1 (PCR) Not Detected (NotDetected) Coronavirus 229E (PCR) Not Detected (NotDetected) SARS-CoV-2 (PCR) Not Detected (NotDetected) Coronavirus NL63 (PCR) Not Detected (NotDetected) Human Metapneumovir PCR Not Detected (NotDetected) Influenza Type A (PCR) Not Detected (NotDetected) Influenza Type B (PCR) Not Detected (NotDetected) M. pneumoniae (PCR) Not Detected (NotDetected) Parainfluenza 1 (PCR) Not Detected (NotDetected) Parainfluenza 2 (PCR) Not Detected (NotDetected) Parainfluenza 3 (PCR) Not Detected (NotDetected) Parainfluenza 4 (PCR) Not Detected (NotDetected) RSV (PCR) Not Detected (NotDetected) Entero/Rhino (PCR) Not Detected (NotDetected) Diagnostic Findings CT abd pelvis IV con only CLINICAL HISTORY: gluteal abscess? r/o Ravi's gangrene TECHNIQUE: Helical axial images of the abdomen and pelvis were obtained and displayed. Automated dose lowering techniques and/or adjustment according to patient size were utilized for this exam. This exam was performed with intravenous contrast. CT DOSE: 1283.57 mGy.cm COMPARISON: None available at the time of this dictation. FINDINGS: Lower chest: No acute abnormality. Liver: Unremarkable. No focal lesions are seen. Gallbladder and biliary tree: No calcified gallstones. Normal caliber wall. No intra- or extrahepatic biliary ductal dilation. Pancreas: Unremarkable, no focal lesions. Spleen: Splenule is incidentally noted. Adrenals: Unremarkable. Kidneys and ureters: Unremarkable. Bladder: Unremarkable. Reproductive organs: Unremarkable. Bowel: The appendix is normal. Lymph nodes Retroperitoneal: Unremarkable. Pelvic: Unremarkable. Mesenteric: Unremarkable. Peritoneum: Normal. Vessels: Unremarkable. Abdominal wall: There is a phlegmonous collection in the buttocks just left of midline measuring approximately 17 x 44 mm though without well-defined enhancing walsh. Surrounding fat stranding is seen. Bones: Degenerative changes in the visualized spine. IMPRESSION: Phlegmon in the left paramedian buttocks without well-developed enhancing walsh which may represent a developing abscess. Surrounding cellulitis is seen. No intraperitoneal involvement or gas-forming infection is seen. ACT 112: Negative or not required by law.
[2023-03-28 08:54] LABS: Basophils # (auto) 0.02 K/uL (0.00-0.20); Basophils % (auto) 0.2 %; Eosinophils # (auto) 0.09 K/uL (0.00-0.50); Hematocrit (blood only) 30.7 % (37.0-47.0); Hemoglobin 10.4 g/dl (12.0-16.0); Immature Granulocytes # (auto) 0.04 K/uL (0.01-0.20); Immature Granulocytes % (auto) 0.4 %; Lymphocytes # (auto) 0.86 K/uL (1.20-3.40); Lymphocytes % (auto) 9.4 %; Mean Corpuscular Hemoglobin 30.5 pg (25.0-34.0); Mean Corpuscular Hgb Conc 33.9 g/dL (32.0-36.0); Monocytes # (auto) 0.86 K/uL (0.11-0.59); Monocytes % (auto) 9.4 %; Neutrophils # (auto) 7.26 K/uL (1.40-6.50); Neutrophils % (auto) 79.6 %; Platelet Count 238 K/uL (130-400); RDW Coefficient of Variation 12.8 % (11.5-14.5); RDW Standard Deviation 42.2 fL (36.4-46.3); Red Blood Count 3.41 M/uL (4.20-5.40); White Blood Count 9.13 K/ul (4.8-10.8)
[2023-03-28] MEDS ORDERED: SODIUM CHLORIDE 0.9% 1,000 ML IV ONE (09:00)
[2023-03-28 09:11] LABS: BUN Creatinine Ratio 13.9 (10-20); Calcium 8.3 mg/dl (8.6-10.3); Creatinine Clr Calc Pharmacy 139.3 ml/min; Est GFR (African American) 123.1 ml/min; Est GFR (Non-African American) 106.2 ml/min
[2023-03-28] MEDS: ENOXAPARIN INJ 40 MG/0.4 ML SYR SQ SCH (09:32)
[2023-03-28] MEDS: DOXYCYCLINE HYCLATE 100 MG CAP PO SCH ×2 (09:32→19:58)
[2023-03-28] MEDS ORDERED: HYDROmorphone INJ 0.5 MG/0.5 ML SYR IV STA (09:34)
--- NOTE | 2023-03-28 09:48 | Electrocardiogram Report ---
Test Reason : Blood Pressure : / mmHG Vent. Rate : 122 BPM Atrial Rate : 122 BPM P-R Int : 144 ms QRS Dur : 076 ms QT Int : 306 ms P-R-T Axes : 006 -05 012 degrees QTc Int : 436 ms Sinus tachycardia Nonspecific ST abnormality Abnormal ECG Confirmed by Desmond Sandhu ([id number]) on 03/28/2023 9:47:33 AM Referred By: REFERRED SELF Confirmed By:Desmond Sandhu
[2023-03-28] MEDS ORDERED: LIDOCAINE 1%/EPINEPHRINE 1:100,000 20 ML VIAL ONE (09:56)
[2023-03-28] MEDS ORDERED: ceFAZolin 2000MG 2,000 MG/15 ML SYR IV ONE (10:46)
[2023-03-28] MEDS ORDERED: ceFAZolin 2,000 MG/15 ML IV PUSH IV ONE (10:54)
[2023-03-28] MEDS ORDERED: LACTATED RINGER'S 1,000 ML IV SCH (11:00)
--- NOTE | 2023-03-28 11:02 | Anesthesiology Consultation ---
Date of Service March 28, 2023 Assessment & Plan Chart Review Chart Review: Acceptable Risk for Surgery and Patient NOT seen in Pre Admission Testing Consults Requested none ASA [id number] Proposed Anesthesia Anesthesia Type: General Risk / Benefits Reviewed With: PT / POA / Parent / Guardian, Accepts Plan and Informed Consent Obtained History Surgery Operation Date: 03/28/23 08:00 Proposed Procedures p Incision and Drainage Perirectal Abscess - Andrae Akins MD Height/Weight Height: 5 ft 6 in Weight: 119.34 kg Allergies Allergy/AdvReac Type Severity Reaction Status Date / Time No Known Allergies Allergy Unverified 03/27/23 19:51 Medications Home Medications Medication Instructions Recorded Confirmed Last Taken aripiprazole 2 mg tablet 2 mg PO HS 03/27/23 03/27/23 Unknown citalopram 40 mg tablet 40 mg PO HS 03/27/23 03/27/23 Unknown erenumab-aooe 140 mg/mL 140 mg subcut MO 03/27/23 03/27/23 Unknown subcutaneous auto-injector (Aimovig Autoinjector) naproxen 500 mg tablet 500 mg PO DIRECTED PRN Migraine 03/27/23 03/27/23 Unknown Headache trazodone 50 mg tablet 150 mg PO HS 03/27/23 03/27/23 Unknown ubrogepant 100 mg tablet (Ubrelvy) 100 mg PO DIRECTED PRN Migraine 03/27/23 03/27/23 Unknown Headache Active Medications Generic Name Dose Route Start Last Admin Trade Name Freq PRN Reason Stop Dose Admin Aripiprazole 2 mg 03/27/23 22:30 03/27/23 23:51 Aripiprazole 1 Mg/Ml Oral Soln 150 Ml Btl PO 04/26/23 22:29 2 mg HS INGRID Administration Citalopram Hydrobromide 40 mg 03/27/23 22:05 03/27/23 23:51 Citalopram 40 Mg Tab PO 04/26/23 22:04 40 mg HS INGRID Administration Doxycycline Hyclate 100 mg 03/28/23 09:00 03/28/23 09:32 Doxycycline Hyclate 100 Mg Cap PO 04/04/23 08:59 100 mg BID INGRID Administration Enoxaparin Sodium 40 mg 03/28/23 09:00 03/28/23 09:32 Enoxaparin Inj 40 Mg/0.4 Ml Syr SQ 04/27/23 08:59 40 mg QAM INGRID Administration Cefepime HCl 2,000 mg/ Syringe 20 mls @ 5 mls/min 03/28/23 04:00 03/28/23 04:18 IV 04/04/23 03:59 5 mls/min Q8H INGRID Administration Protocol Sodium Chloride 1,000 mls @ 80 mls/hr 03/28/23 09:00 03/28/23 10:48 Nss IV 03/28/23 21:29 Not Given .[id number] ONE Lactated Ringer's 1,000 mls @ 15 mls/hr 03/28/23 11:00 03/28/23 11:00 Lr IV 04/27/23 10:59 15 mls/hr .Q24H INGRID Administration Ketorolac Tromethamine 15 mg 03/27/23 22:00 03/28/23 00:50 Ketorolac Tromethamine 15 Mg/Ml Vial IV 04/01/23 21:59 15 mg Q6H PRN Administration Pain Trazodone HCl 150 mg 03/27/23 22:05 03/27/23 23:51 Trazodone Hcl 50 Mg Tab PO 04/26/23 22:04 150 mg HS INGRID Administration NPO Date Last Intake of Fluids: 03/27/23 Time Last Intake of Fluids: 23:30 Last Intake of Fluids Comment: 1000am sip water w/ meds Date Last Intake of Solids: 03/27/23 Time Last Intake of Solids: 21:00 Past Medical History anemia sepsis morbid obesity Exercise / Class Metabolic Activity II 4-5 Yardwork/Stairs/Walk up hill Past Anesthesia History No Hx of Anesthesia Complications and No Family Hx of Anesthesia Complications History of PONV No Hx of PONV and No Hx of Motion Sickness Social History Smoking Status: Never smoker Hx Alcohol Use: Yes alcohol intake frequency: holidays/special occasions only Hx Substance Use: No Physical Exam Vital Signs Last Vital Signs Temp 36.8 C 03/28/23 10:29 Pulse 116 H 03/28/23 10:29 Resp 16 03/28/23 10:29 BP 119/92 03/28/23 10:29 Pulse Ox 99 03/28/23 10:29 O2 Del Method Room Air 03/28/23 10:29 Constitutional + morbidly obese; no acute distress ENMT Mouth: no dentition abnormality Thyromental Distance: < 3.5 Finger Breadths Mallampati Class: III Neck normal visual inspection and trachea midline; neck extension not limited Respiratory normal respiratory effort Auscultation: lungs clear to auscultation bilaterally Cardiovascular Rate/Rhythm: regular rhythm and + tachycardic Heart Sounds: no murmur Vessels: no carotid bruit Musculoskeletal Spine: normal cervical ROM and no pain with cervical ROM Extremities: extremities normal to inspection; full ROM of extremities Neurologic moves all extremities Motor/Sensory: no sensory deficit Psychiatric Orientation: alert and oriented x 3 Testing Laboratory Results 03/28/23 08:41 03/28/23 08:41 Urine Color Yellow 03/27/23 20:49 Urine Appearance Cloudy (Clear) A 03/27/23 20:49 Urine pH 8.0 (4.5-7.5) H 03/27/23 20:49 Ur Specific [place] 1.015 (1.000-1.030) 03/27/23 20:49 Urine Protein Negative (Negative) 03/27/23 20:49 Urine Glucose (UA) Negative (Negative) 03/27/23 20:49 Urine Ketones Negative (Negative) 03/27/23 20:49 Urine Nitrite Negative (Negative) 03/27/23 20:49 Ur Leukocyte Esterase Negative (Negative) 03/27/23 20:49 Urine RBC 0-4 /hpf (0-4) 03/27/23 20:49 Urine WBC 0-5 /hpf (0-5) 03/27/23 20:49 Ur Epithelial Cells 5-10 /lpf (0-5) H 03/27/23 20:49 Urine Test Negative (Negative) 03/27/23 20:49 03/28/23 06:42 Gram Stain - Final Buttock 03/27/23 20:49 Urine Test Negative Electrocardiogram Date: 03/27/23 Findings: + NSST changes and + ST @ (@ 122;) Chest X-Ray Date: 03/27/23 Findings: + NAD
[2023-03-28] MEDS ORDERED: FLUMAZENIL 0.1 MG/1 ML 10 ML VIAL IV PRN (11:03)
[2023-03-28] MEDS ORDERED: fentaNYL citrate PF 100 MCG/2 ML VIAL IV PRN (11:03)
[2023-03-28] MEDS ORDERED: NALOXONE HCL 0.4 MG/1 ML VIAL/CARP IV PRN (11:03)
[2023-03-28] MEDS ORDERED: ePHEDrine sulfate 50 MG/ML AMP IV PRN (11:03)
[2023-03-28] MEDS ORDERED: ATROPINE SULFATE 0.1 MG/ML 10ML SYR IV PRN (11:03)
[2023-03-28] MEDS ORDERED: HYDROmorphone INJ 1 MG/ML SYRINGE IV PRN (11:03)
[2023-03-28] MEDS ORDERED: PROMETHAZINE HCL 12.5 MG in SODIUM CHLORIDE 0.9% 50 ML IV PRN (11:03)
[2023-03-28] MEDS ORDERED: LABETALOL HCL IV 5 MG/ML 20ML IV PRN (11:03)
[2023-03-28] MEDS ORDERED: ONDANSETRON INJ 2 MG/ML 2 ML VIAL IV PRN (11:03)
[2023-03-28] MEDS ORDERED: fentaNYL citrate PF 100 MCG/2 ML VIAL ONE (11:09)
[2023-03-28] MEDS ORDERED: PROPOFOL IV EMULSION 10 MG/ML 20 ML VIAL IV ONE (11:10)
[2023-03-28] MEDS ORDERED: MIDAZOLAM HCL 1 MG/ML 2ML VIAL ONE (11:10)
[2023-03-28] MEDS ORDERED: SUCCINYLCHOLINE CHLORIDE 20 MG/ML 10 ML VIAL IV ONE (11:39)
--- NOTE | 2023-03-28 11:57 | Operative Report ---
Post Operative Report Pre & Post Diagnosis Operation Date: 03/28/23 08:00 Pre-Op Diagnosis: Perirectal abscess Post-Op Diagnosis: Perirectal abscess I identified the patient and participated in the time-out.: Yes Procedure Operation Date: 03/28/23 08:00 Actual Procedures p Incision and Drainage Perirectal Abscess(Not Applicable) - Andrae Akins MD Surgeon Andrae Akins MD Fruit Checker None Estimated Blood Loss 5 Findings Consistent with Post-Op Diagnosis Moderate amount of purulent fluid drained; culture sent Specimens Culture for aerobic and anaerobic Drains None Anesthesia Type General Complications No immediate complications Description of Procedure Patient was taken the operating room, placed supine on the operating table. Timeout performed, perioperative antibiotics were administered, SCD boots were placed. After adequate anesthesia and analgesia was obtained, she was placed in lithotomy position was prepped and draped in normal sterile fashion. The area was examined. There was an area higher up on the buttock in the gluteal fold that was draining some purulence, there was a boggy area closer to the rectum that appeared to be involved as well. We began by making a small cruciate incision in the boggy area closer to the rectum. No purulence was identified there. This was irrigated. We then turned our attention up to the gluteal cleft. A cruciate incision was made in this location, and a large amount of pus was identified and suctioned. Cultures were taken from here. Loculations were broken with a hemostat. Packing was placed. Dressings were applied. She tolerated the procedure without complication, was transferred in stable condition to the PACU. All instrument, needle, and sponge counts were correct at the end of the case. I attest to the content of the Intraoperative Record and any orders documented therein. Any exceptions are noted below.
--- NOTE | 2023-03-28 12:37 | Anesthesiology Progress Note ---
Date of Service March 28, 2023 Anesthesia Post Procedure Vital Signs Vital Signs: Temp Pulse Pulse Pulse Resp BP BP 03/28/23 12:25 37.3 C 103 H 13 134/73 03/28/23 12:15 103 H 16 134/93 03/28/23 12:05 99 H 16 124/69 03/28/23 11:55 36.4 C L 102 H 19 133/78 03/28/23 10:29 36.8 C 116 H 16 119/92 03/28/23 07:52 36.8 C 95 H 16 03/28/23 05:59 96 H 03/28/23 04:33 36.9 C 99 H 18 120/74 03/27/23 23:24 103 H 03/27/23 23:20 37.3 C 110 H 20 139/78 03/27/23 22:00 100 H 18 03/27/23 21:45 102 H 18 03/27/23 21:30 100 H 18 03/27/23 21:15 37.6 C 104 H 18 03/27/23 21:00 102 H 18 03/27/23 20:45 105 H 19 03/27/23 20:30 108 H 18 03/27/23 20:15 103 H 18 03/27/23 20:09 98 H 18 03/27/23 20:00 103 H 18 03/27/23 19:30 38.5 C H 103 H 18 03/27/23 19:15 107 H 18 03/27/23 19:15 03/27/23 19:09 107 H 18 03/27/23 18:46 121 H 03/27/23 18:33 38.5 C H 108 H 18 03/27/23 18:33 107 H 18 03/27/23 18:33 102 H 18 03/27/23 18:32 39.1 C H 133 H 18 03/27/23 18:24 39.2 C H 140 H 22 158/88 H BP Pulse Ox O2 Del Method O2 Flow Rate 03/28/23 12:25 99 Room Air 03/28/23 12:15 97 Room Air 03/28/23 12:05 96 Room Air 03/28/23 11:55 100 Oxymask 9 03/28/23 10:29 99 Room Air 03/28/23 07:52 108/68 96 Room Air 03/28/23 05:59 03/28/23 04:33 96 Room Air 03/27/23 23:24 03/27/23 23:20 96 Room Air 03/27/23 22:00 152/80 H 99 03/27/23 21:45 149/75 H 99 03/27/23 21:30 148/61 H 99 03/27/23 21:15 160/69 H 98 Room Air 03/27/23 21:00 145/65 H 99 Room Air 03/27/23 20:45 144/72 H 99 Room Air 03/27/23 20:30 130/76 99 03/27/23 20:15 144/92 H 99 Room Air 03/27/23 20:09 130/73 99 03/27/23 20:00 130/73 99 03/27/23 19:30 137/76 99 03/27/23 19:15 138/89 98 Room Air 03/27/23 19:15 98 03/27/23 19:09 134/83 99 03/27/23 18:46 03/27/23 18:33 137/76 99 Room Air 03/27/23 18:33 138/87 03/27/23 18:33 134/83 98 03/27/23 18:32 139/79 96 Room Air 03/27/23 18:24 99 Room Air Pain Intensity Buttock: Pain Intensity: 7 Left Buttock: Pain Intensity: 3 Transfer of Care Handoff Completed per policy Notes Mental Status: alert / awake / arousable Patient Amnestic to Procedure: Yes Nausea / Vomiting: adequately controlled Pain: adequately controlled Airway Patency, RR, SpO2: stable & adequate BP & HR: stable & adequate Hydration State: stable & adequate Anesthetic Complications: no major complications apparent
--- NOTE | 2023-03-28 17:42 | Hospitalist Progress Note ---
Date of Service March 28, 2023 Assessment & Plan (1) Sepsis: Plan: Pt is a 37yoF with PMHx significant for migraine, anxiety/mood disorder, morbid obesity admitted with a hanna-rectal abscess. Hanna-rectal Abscess Sepsis Pt presenting with painful area in buttock region, fevers and chills Febrile in the ED, tachycardic, with CT abd/pelvis noting possible perirectal abscess and cellulitis as a possible infectious source WBC wnl Lactate wnl Pain and fever control IV Cefepime and Doxycycline General surgery consulted, appreicate recs -s/p I & D under anesthesia on 03/28/23 -continue Cefepime and Doxycycline Chronic medical problems: Migraine, controlled on monthly Aivomig injections anxiety/mood disorder, at baseline Hyperglycemia rule out DM, am [id number] pending morbid obesity Diet: Regular DVT prophylaxis: Lovenox subcu Full code Dispo: Home per surgery recs Admission and Anticipated Discharge Date Admission Date: March 27, 2023 Subjective Pt was seen in the AM before her I & D. Stated that she was in pain. Notes no prior Hx of this. Review of Systems Review of Systems: All systems reviewed & are unremarkable except as noted in Subjective Physical Exam Physical Exam: General: Alert, oriented. No acute distress Skin: Noted erythematous fluctuant perirectal area Psych: Appropriate mood and affect Neuro: No gross deficits HEENT: NC/AT Chest: Nontender to palpation. CV: RRR Resp: Breath sounds clear bilaterally, no increased effort of breathing. Abdomen: Soft, nontender, nondistended. Extremities: No edema in lower extremities bilaterally. Results & Data Results & Data Vital Signs (Past 12 Hours) Vital Signs Temp Pulse Pulse Pulse Resp BP BP 03/28/23 10:29 36.8 C 116 H 16 119/92 03/28/23 07:52 36.8 C 95 H 16 108/68 03/28/23 05:59 96 H 03/28/23 04:33 36.9 C 99 H 18 120/74 03/27/23 23:24 103 H Pulse Ox O2 Del Method 03/28/23 10:29 99 Room Air 03/28/23 07:52 96 Room Air 03/28/23 05:59 03/28/23 04:33 96 Room Air 03/27/23 23:24 Diagnostic Findings Chest X-Ray 03/27/23 18:33 XR chest 1V portable CLINICAL HISTORY: Sepsis TECHNIQUE: Single frontal radiograph of the chest was obtained. Comparison: Comparison is made to chest radiograph 06/25/2014 FINDINGS: Exam is limited by underpenetration. The cardiomediastinal silhouette is normal. The lungs are clear. No evidence of pleural effusion or pneumothorax. IMPRESSION: No acute chest disease. ACT 112: Negative or not required by law. Electronically signed by: Kavon Walls M.D. 03/27/2023 7:03 PM Abdomen/Pelvis CT 03/27/23 18:44 CT abd pelvis IV con only CLINICAL HISTORY: gluteal abscess? r/o Ravi's gangrene TECHNIQUE: Helical axial images of the abdomen and pelvis were obtained and displayed. Automated dose lowering techniques and/or adjustment according to patient size were utilized for this exam. This exam was performed with intravenous contrast. CT DOSE: 1283.57 mGy.cm COMPARISON: None available at the time of this dictation. FINDINGS: Lower chest: No acute abnormality. Liver: Unremarkable. No focal lesions are seen. Gallbladder and biliary tree: No calcified gallstones. Normal caliber wall. No intra- or extrahepatic biliary ductal dilation. Pancreas: Unremarkable, no focal lesions. Spleen: Splenule is incidentally noted. Adrenals: Unremarkable. Kidneys and ureters: Unremarkable. Bladder: Unremarkable. Reproductive organs: Unremarkable. Bowel: The appendix is normal. Lymph nodes Retroperitoneal: Unremarkable. Pelvic: Unremarkable. Mesenteric: Unremarkable. Peritoneum: Normal. Vessels: Unremarkable. Abdominal wall: There is a phlegmonous collection in the buttocks just left of midline measuring approximately 17 x 44 mm though without well-defined enhancing walsh. Surrounding fat stranding is seen. Bones: Degenerative changes in the visualized spine. IMPRESSION: Phlegmon in the left paramedian buttocks without well-developed enhancing walsh which may represent a developing abscess. Surrounding cellulitis is seen. No intraperitoneal involvement or gas-forming infection is seen. ACT 112: Negative or not required by law. Electronically signed by: Kavon Walls M.D. 03/27/2023 8:33 PM
[2023-03-28] MEDS: CITALOPRAM 40 MG TAB PO SCH (19:58)
[2023-03-28] MEDS: ARIPIprazole 1 MG/ML ORAL SOLN 150 ML BTL PO SCH (19:58)
[2023-03-28] MEDS: traZODone HCL 50 MG TAB PO SCH (20:55)
[2023-03-28] MEDS ORDERED: ACETAMINOPHEN 500 MG TAB PO PRN (21:24)
[2023-03-28] MEDS ORDERED: KETOROLAC TROMETHAMINE 15 MG/ML VIAL IV PRN (21:26)
[2023-03-28] MEDS ORDERED: oxyCODONE HCL IR 5 MG TAB (IMMEDIATE RELEASE) PO PRN (21:26)
[2023-03-29] MEDS: CEFEPIME 2,000 MG in SYRINGE 0 ML IV SCH ×2 (03:34→13:00)
[2023-03-29 05:15] LABS: BUN Creatinine Ratio 16.7 (10-20); Calcium 9.4 mg/dl (8.6-10.3); Creatinine Clr Calc Pharmacy 119.4 ml/min; Est GFR (African American) 102.2 ml/min; Est GFR (Non-African American) 88.2 ml/min; Magnesium 2.1 mg/dl (1.7-2.4); Phosphorus 2.9 mg/dl (2.5-4.9); Potassium 4.6 mmol/L (3.5-5.1)
[2023-03-29 05:16] LABS: Basophils # (auto) 0.03 K/uL (0.00-0.20); Basophils % (auto) 0.4 %; Eosinophils % (auto) 3.9 %; Hematocrit (blood only) 34.7 % (37.0-47.0); Hemoglobin 11.2 g/dl (12.0-16.0); Immature Granulocytes # (auto) 0.05 K/uL (0.01-0.20); Immature Granulocytes % (auto) 0.7 %; Lymphocytes # (auto) 1.45 K/uL (1.20-3.40); Lymphocytes % (auto) 19.1 %; Mean Corpuscular Hemoglobin 29.8 pg (25.0-34.0); Mean Corpuscular Hgb Conc 32.3 g/dL (32.0-36.0); Mean Corpuscular Volume 92.3 fL (80.0-100.0); Mean Platelet Volume 9.3 fL (9.4-12.4); Monocytes # (auto) 0.66 K/uL (0.11-0.59); Monocytes % (auto) 8.7 %; Neutrophils # (auto) 5.11 K/uL (1.40-6.50); Neutrophils % (auto) 67.2 %; Platelet Count 291 K/uL (130-400); RDW Coefficient of Variation 12.8 % (11.5-14.5); RDW Standard Deviation 43.3 fL (36.4-46.3); Red Blood Count 3.76 M/uL (4.20-5.40)
--- NOTE | 2023-03-29 07:46 | Surgery Progress Note ---
Date of Service March 29, 2023 Assessment & Plan (1) Cellulitis and abscess of buttock: (2) Perirectal abscess: Plan POD#1 s/p I&D of perirectal abscess doing well packing removed continue dry dressing june d/c to home on PO antibiotics F/u in clinic in 2-3 days with surgery Admission and Anticipated Discharge Date Admission Date: March 27, 2023 Subjective doing well s/p drainage of perirectal abscess. no nausea/vomiting; minimal pain. Physical Exam Physical Exam: AFVSS NAD A&Ox3 right buttock packing removed less induration/erythema no purulent drainage left packing out Results & Data Vital Signs (Past 12 Hours) Vital Signs Temp Pulse Pulse Resp BP Pulse Ox Pulse Ox 03/29/23 06:35 82 03/29/23 04:18 36.6 C 93 H 18 113/73 97 03/28/23 23:42 83 03/28/23 23:26 96 03/28/23 23:22 36.6 C 97 H 18 141/99 H 96 03/28/23 20:03 37.3 C 110 H 18 131/78 95 O2 Del Method O2 Del Method 03/29/23 06:35 03/29/23 04:18 Room Air 03/28/23 23:42 03/28/23 23:26 Room Air 03/28/23 23:22 Room Air 03/28/23 20:03 Room Air Laboratory Results 03/29/23 03/28/23 Range/Units 04:16 08:41 WBC 7.60 9.13 (4.8-10.8) K/ul RBC 3.76 L 3.41 L (4.20-5.40) M/uL Hgb 11.2 L 10.4 L (12.0-16.0) g/dl Hct 34.7 L 30.7 L (37.0-47.0) % MCV 92.3 90.0 (80.0-100.0) fL MCH 29.8 30.5 (25.0-34.0) pg MCHC 32.3 33.9 (32.0-36.0) g/dL RDW Std Deviation 43.3 42.2 (36.4-46.3) fL RDW Coeff of Magnus 12.8 12.8 (11.5-14.5) % Plt Count 291 238 (130-400) K/uL MPV 9.3 L 9.0 L (9.4-12.4) fL Immature Gran % (Auto) 0.7 0.4 % Neut % (Auto) 67.2 79.6 % Lymph % (Auto) 19.1 9.4 % Tripp % (Auto) 8.7 9.4 % Eos % (Auto) 3.9 1.0 % Baso % (Auto) 0.4 0.2 % Neut # (Auto) 5.11 7.26 H (1.40-6.50) K/uL Lymph # (Auto) 1.45 0.86 L (1.20-3.40) K/uL Tripp # (Auto) 0.66 H 0.86 H (0.11-0.59) K/uL Eos # (Auto) 0.30 0.09 (0.00-0.50) K/uL Baso # (Auto) 0.03 0.02 (0.00-0.20) K/uL Immature Gran # (Auto) 0.05 0.04 (0.01-0.20) K/uL Sodium 140 137 (136-145) mmol/L Potassium 4.6 4.0 (3.5-5.1) mmol/L Chloride 109 H 109 H (98-107) mmol/L Carbon Dioxide 26 24 (21-32) mmol/L Anion Gap 5 4 (3-11) BUN 14 10 (6-23) mg/dl Creatinine 0.84 0.72 (0.6-1.2) mg/dl Est Cr Clr Drug Dosing 119.4 139.3 ml/min Est GFR ( Amer) 102.2 123.1 ml/min Est GFR (Non-Af Amer) 88.2 106.2 ml/min BUN/Creatinine Ratio 16.7 13.9 (10-20) Glucose 101 H 98 (70-99(Fasting)) mg/dl Estimat Average Glucose Pending Hemoglobin A1c Pending Calcium 9.4 8.3 L (8.6-10.3) mg/dl Phosphorus 2.9 (2.5-4.9) mg/dl Magnesium 2.1 (1.7-2.4) mg/dl
[2023-03-29 08:13] LABS: Estimated Average Glucose 108 mg/dl; Hemoglobin A1C 5.4 % (4.5-5.6)
[2023-03-29] MEDS: ENOXAPARIN INJ 40 MG/0.4 ML SYR SQ SCH (08:43)
[2023-03-29] MEDS: DOXYCYCLINE HYCLATE 100 MG CAP PO SCH (08:43)
--- NOTE | 2023-03-29 12:57 | Discharge Summary ---
Discharge Summary Date of Service March 29, 2023 Notes For Next Care Provider Please follow up on surgical buttock or perirectal abscess wound culture and discontinue doxycycline if MRSA not present. Further adjust home antibiotics as needed based on the culture results (see below for discharge meds). Please ensure follow up with General Surgery in 2-3 days as scheduled. Medication Changes From Visit Ciprofloxacin 750mg BID x 5 days for perirectal abscess Flagyl 500mg TID x 5 days for perirectal abscess Doxycycline 100mg BID x 5 days for MRSA coverage with perirectal abscess (consider discontinuing outpatient based on currently pending culture results) Probiotic to be taken while on antibiotics above and for at least a week afterwards Admission HPI Per Admitting Provider History obtained from patient and records. Medical history significant for migraine, anxiety/mood disorder, morbid obesity, 2 days ago, patient noted painful swelling on the left buttock which subsequently worsened. No recollection of trauma. Patient had fever or chills. Denies chest pain, SOB, headache symptoms. No prior episodes. Vancomycin and Zosyn administered at the ER. Medical History as above Surgical History : Bilateral salpingectomy, dental surgery Family History : Migraine, dementia, breast cancer Personal/Social history : Non-smoker, occasional EtOH intake, works from home Admission Exam Per Admitting Provider GENERAL: Comfortable, morbidly obese, pleasant, no respiratory distress SKIN: Normal color, warm HEENT: Bespectacled, [place] palpebral conjunctivae, no ptosis, dry buccal mucosa NECK : Supple, short neck, no tenderness CHEST : CTA, no tenderness HEART : Tachycardic, no obvious murmurs ABDOMEN: Some distention, nontender BUTTOCK : Tender induration left buttock EXTREMITIES : Bilateral LE swelling, no LE tenderness, no other conspicuous deformities noted NEUROLOGIC : Coherent, no facial asymmetry, no other gross focality Principal Dx & Hospital Course #1 = Principal Diagnosis (1) Sepsis: Pt is a 37yoF with PMHx significant for migraine and anxiety/mood disorder admitted with sepsis in the setting of a hanna-rectal abscess. Perirectal Abscess Sepsis Pt presenting with painful area in buttock region, fevers and chills Febrile in the ED, tachycardic, with CT abd/pelvis noting possible perirectal abscess and cellulitis as a possible infectious source WBC wnl Lactate wnl Pain and fever were controlled and she was seen by General Surgery with Incision and Drainage performed on 03/28/2023 under anesthesia. Cultures were obtained at that time. On 03/29/2023, General Surgery removed the packing and applied dry dressing. Advised that may discharge pt home and pt was extremely desirous of discharge. She was transitioned from IV Cefepime and Doxycycline to po Ciprofloxacin 750mg BID, po Flagyl 500mg TID (for perirectal/GI infection coverage) and Doxycycline 100mg BID (for potential MRSA coverage) x 5 days. She was also discharged on a probiotic to Her intraoperative cultures (buttock or perirectal abscess wound cultures) were still pending at the time of discharge. Please follow up on cultures and discontinue doxycycline if MRSA not present or further adjust as needed based on the culture results. Close pcp follow up is recommended for this. Please also ensure follow up with General Surgery in 2-3 days as scheduled. Afebrile and no longer in pain on the day of discharge. Pt was discharged home in stable condition. Chronic medical problems: Migraine, controlled on monthly Aivomig injections anxiety/mood disorder, at baseline Hyperglycemia- DM ruled out by a normal hgba1c of 5.4 Discharge Exam General: Alert, oriented. No acute distress Skin: erythematous perirectal area with some bloody drainage, not as tender as on admission Psych: Appropriate mood and affect Neuro: No gross deficits HEENT: NC/AT Chest: Nontender to palpation. CV: RRR Resp: Breath sounds clear bilaterally, no increased effort of breathing. Abdomen: Soft, nontender, nondistended. Extremities: No edema in lower extremities bilaterally. Updated Medication List Medication Instructions Recorded Confirmed Type aripiprazole 2 mg tablet 2 mg PO HS 03/27/23 03/27/23 History citalopram 40 mg tablet 40 mg PO HS 03/27/23 03/27/23 History erenumab-aooe 140 mg/mL 140 mg subcut MO 03/27/23 03/27/23 History subcutaneous auto-injector (Aimovig Autoinjector) naproxen 500 mg tablet 500 mg PO DIRECTED PRN Migraine 03/27/23 03/27/23 History Headache trazodone 50 mg tablet 150 mg PO HS 03/27/23 03/27/23 History ubrogepant 100 mg tablet (Ubrelvy) 100 mg PO DIRECTED PRN Migraine 03/27/23 03/27/23 History Headache Saccharomyces boulardii 250 mg 250 mg PO BID #60 caps 03/29/23 Rx capsule (Daily Probiotic (S. boulardii)) ciprofloxacin HCl 750 mg tablet 750 mg PO BID #10 tabs 03/29/23 Rx doxycycline hyclate 100 mg tablet 100 mg PO BID #10 tabs 03/29/23 Rx metronidazole 500 mg tablet 500 mg PO TID #15 tabs 03/29/23 Rx Hospital Stay Data Consultations 03/27/23 20:41 ED Decision to Admit Stat 03/27/23 23:26 Consult General Surgery Routine Procedures Performed Operation Date: 03/28/23 08:00 Actual Procedures p Incision and Drainage Perirectal Abscess(Not Applicable) - Andrae Akins MD Diagnostic Imagining Performed 03/27/23 18:44 CT abd pelvis IV con only Stat Chest X-Ray 03/27/23 18:33 XR chest 1V portable CLINICAL HISTORY: Sepsis TECHNIQUE: Single frontal radiograph of the chest was obtained. Comparison: Comparison is made to chest radiograph 06/25/2014 FINDINGS: Exam is limited by underpenetration. The cardiomediastinal silhouette is normal. The lungs are clear. No evidence of pleural effusion or pneumothorax. IMPRESSION: No acute chest disease. ACT 112: Negative or not required by law. Electronically signed by: Kavon Walls M.D. 03/27/2023 7:03 PM Abdomen/Pelvis CT 03/27/23 18:44 CT abd pelvis IV con only CLINICAL HISTORY: gluteal abscess? r/o Ravi's gangrene TECHNIQUE: Helical axial images of the abdomen and pelvis were obtained and displayed. Automated dose lowering techniques and/or adjustment according to patient size were utilized for this exam. This exam was performed with intravenous contrast. CT DOSE: 1283.57 mGy.cm COMPARISON: None available at the time of this dictation. FINDINGS: Lower chest: No acute abnormality. Liver: Unremarkable. No focal lesions are seen. Gallbladder and biliary tree: No calcified gallstones. Normal caliber wall. No intra- or extrahepatic biliary ductal dilation. Pancreas: Unremarkable, no focal lesions. Spleen: Splenule is incidentally noted. Adrenals: Unremarkable. Kidneys and ureters: Unremarkable. Bladder: Unremarkable. Reproductive organs: Unremarkable. Bowel: The appendix is normal. Lymph nodes Retroperitoneal: Unremarkable. Pelvic: Unremarkable. Mesenteric: Unremarkable. Peritoneum: Normal. Vessels: Unremarkable. Abdominal wall: There is a phlegmonous collection in the buttocks just left of midline measuring approximately 17 x 44 mm though without well-defined enhancing walsh. Surrounding fat stranding is seen. Bones: Degenerative changes in the visualized spine. IMPRESSION: Phlegmon in the left paramedian buttocks without well-developed enhancing walsh which may represent a developing abscess. Surrounding cellulitis is seen. No intraperitoneal involvement or gas-forming infection is seen. ACT 112: Negative or not required by law. Electronically signed by: Kavon Walls M.D. 03/27/2023 8:33 PM Discharge Instructions Given to Patient (Per Discharging Provider) Adria, You had a severe infection due to a perirectal abscess that caused sepsis. You had it incised and drained under anesthesia and there were cultures taken that a re still growing/pending. However, you want to go home and general surgery is also recommending discharge home. We are sending you home with THREE antibiotics for the next 5 days to treat this severe infection and to ensure all the different possible types of bacteria that can cause this are being treated. Once the culture results are back, they will be forwarded to your primary care provider and they can help tailor your antibiotics and tell you which ones to continue. Please continue taking all three for 5 days or until you hear back from your primary care provider (whichever is sooner). You are being discharged with the antibiotic doxycycline 100mg to be taken twice a day to cover for a potential MRSA infection that we can see with abscesses. You are also being discharged with the antibiotics ciprofloxacin 750mg twice a day and metronidazole 500mg three times a day for 5 days that we use to treat infections involving the GI tract. Please consider using a probiotic while on the antibiotics above. General Surgery is requesting follow up with their office in 2-3 days. Please keep follow up as requested. Please keep close follow up with your primary care provider after discharge as well. Please do not hesitate to come back to the emergency room if your symptoms worsen or return. It was a pleasure taking care of you while you were here. Total Time Total Time Spent Total Time Spent (In Minutes): > 30 minutes
== END 2023-03-29 15:45 | disposition home or self-care (01) | DRG 854 ==
LOC: ED 18:09 → 2W 21:58